=== PATIENT | female | born 1995 | race Two or more races ===

== ENCOUNTER → 2024-06-24 | Outpatient (CLI) | payer MEDICAID, SELFPAY ==
--- NOTE | 2024-06-24 10:30 | XR_ITS ---
Examination: MRI lumbar spine without contrast Date and time of exam: June 24, 2024 1013 hours INDICATIONS: Low back pain radiating to the buttock region numbness in the right leg 2 years worse the last 6 months Technique: Multiple MRI axial and sagittal sections lumbar spine. Sagittal T2-weighted images, TR 3500, TE 118 T1 weighted transverse sections, TR 688 T8.5, T2-weighted sagittal sections T1 weighted sagittal sections TR 621, TE 30 T2 axial sections, TR 4, 190, TE 84. 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
== END | disposition home or self-care (01) ==
LOC: SMRI 10:07
PROVIDERS: PCP Physician Assistant; Referring Provider Physician Assistant; Visit Provider Physician Assistant
DX: M51.379 Other intervertebral disc degeneration, lumbosacral region without mention of lumbar back pain or lower extremity pain (principal); M51.369 Other intervertebral disc degeneration, lumbar region without mention of lumbar back pain or lower extremity pain
CPT/HCPCS: 72148

== ENCOUNTER 2024-08-04 00:05 | Emergency (ER) | payer MEDICAID, SELFPAY ==
[2024-08-04 00:06] VITALS: BMI 33.0
[2024-08-04 00:40] VITALS: BP 119/77; PULSE 96; RESP 17; TEMP 36.8; O2SAT 98
--- NOTE | 2024-08-04 00:51 | XR_ITS ---
Examination: Complete OB ultrasound, less than 14 weeks, transabdominal Date and time of exam: August 04, 2024 0240 hrs. Indications: Pelvic cramping beginning 2 days ago, positive test today Technique: Obstetrical ultrasound images less than 14 weeks performed via transabdominal imaging Findings: A normal shaped single intrauterine gestation is present in the uterus. CRL 2.30 cm corresponds to 9 week 0 day gestational age Cardiac motion 182 BPM Ultrasonographic survey of visible and placental structures unremarkable. Amniotic fluid volume appears appropriate for this estimated gestational age. Right ovary 2.8 cm arterial flow Left ovary 4.5 cm arterial flow 21 mm cyst Impression: Viable intrauterine gestation 9 weeks 0 days.
--- NOTE | 2024-08-04 00:52 | PD.EDRME ---
Rapid Medical Screening Exam RME Arrival date/time: 08/04/24 00:05 29-year-old female 4 para 3 A0 presents emergency department complaining of abdominal cramping no vaginal bleeding reports this approximately 8 weeks . Chief Complaint: OB/Uterine Contractions Time Seen by Provider: 08/04/24 00:16 Vital signs: Vital Signs Temperature 98.2 F 08/04/24 00:40 Pulse Rate 96 08/04/24 00:40 Respiratory Rate 17 08/04/24 00:40 Blood Pressure 119/77 08/04/24 00:40 Pulse Oximetry (%) 98 08/04/24 00:40 Oxygen Delivery Method Room Air 08/04/24 00:40 Vital signs reviewed by provider: Yes
[2024-08-04 01:18] LABS: Collection Type, Urine Clean Catch; WBC,Urine 0 /hpf (0-5)
[2024-08-04 01:32] LABS: Bilirubin,Urine Negative (Negative); Blood,Urine Negative (Negative); Clarity,Urine Clear (Clear/Hazy); Color,Urine Colorless (Lt Yel-Yel); Culture Indicated,Urine Not Indicated; Glucose, Urine Negative (Negative); Ketones,Urine Negative (Negative); Leukocyte Esterase,Urine Negative (Negative); Nitrite,Urine Negative (Negative); Protein,Urine Negative (Neg - Trace); RBC,Urine < 1 /hpf (0-3); Specific Gravity,Urine 1.016 (1.001-1.035); Squamous Epithelial Cell,Urine 1 /hpf (0-5); Urobilinogen,Urine Negative mg/dL (0.0-1.0)
[2024-08-04 01:42] LABS: Basophils # (Auto) 0.1 Thou/mm3 (0.0-0.2); Basophils % (Auto) 1 % (0-2.5); Eosinophils # (Auto) 0.2 Thou/mm3 (0.0-0.5); Eosinophils % (Auto) 1 % (0-10); Hematocrit 40.2 % (36.0-46.0); Hemoglobin 13.6 g/dL (12.0-16.0); Immature Granulocytes % (Auto) 0 % (0-0); Immature Granulocytes Auto 0.04 Thou/mm3 (0.00-0.00); Lymphocytes # (Auto) 3.5 Thou/mm3 (1.0-4.8); Lymphocytes % (Auto) 30 % (10-50); Mean Corpuscular HGB Conc 33.8 g/dl (31.0-37.0); Mean Corpuscular Hemoglobin 29.3 pg (25.0-35.0); Mean Corpuscular Volume 87 fL (80-100); Monocytes # (Auto) 0.7 Thou/mm3 (0.0-0.8); Monocytes % (Auto) 6 % (0-12); Neutrophils # (Auto) 7.3 Thou/mm3 (1.8-7.7); Neutrophils % (Auto) 62 % (37-80); Nucleated Red Blood Cell % 0 /100 WBC (0); Platelet Count 265 Thou/mm3 (140-440); RDW Standard Deviation 39.7 fL (36.4-46.3); Red Blood Count 4.64 Miln/mm3 (4.00-5.20); White Blood Count 11.8 Thou/mm3 (3.6-11.0)
[2024-08-04 01:54] LABS: Alanine Aminotransferase 18 U/L (10-49); Albumin, Serum 4.5 gm/dL (3.5-5.0); Albumin/Globulin Ratio 1.5 (1.2-2.2); Alkaline Phosphatase 115 U/L (46-116); Anion Gap 6 (7-16); Aspartate Amino Transferase 18 U/L (0-34); BUN/Creatinine Ratio 22 Ratio (12-20); Bilirubin,Total 0.3 mg/dL (0.3-1.2); Blood Urea Nitrogen 13 mg/dL (9-23); Carbon Dioxide 26.4 mMol/L (20.0-31.0); Chloride 108 mMol/L (98-107); Creatinine (Component) 0.6 mg/dL (0.6-1.3); Estimated Creatinine Clearance 129.6 mL/min (>60); Glucose 96 mg/dL (74-106); Osmolality,Calculated 279 (275-295); Potassium 3.8 mMol/L (3.4-5.1); Sodium 140 mMol/L (136-145); Total Protein 7.5 gm/dL (5.7-8.2); eGFR > 60 See Note
[2024-08-04 02:26] LABS: Beta HCG,Quantitative 71227 mIU/mL (<5.0)
--- NOTE | 2024-08-04 04:11 | PRELIM_ITS ---
Obstetric ultrasound (transabdominal) with doppler and wave doppler spectral analysis. August 04, 2024 at 0240 hours Clinical history: Early viability Technique: Real-time ultrasound was performed using Duplex scanning including arterial inflow, venous outflow, color and spectral Doppler analysis of both ovaries. Comparison: None available at the time of this report. Findings: There is an intrauterine gestation with a single live fetus of mean gestational age 9 weeks and 0 days (CRL= 2.3 cm). cardiac activity is present at heart rate of 182 beats per minute. The uterus measures 12.7 x 6.3 x 8.1 cm. The right ovary measures 2.8 x 1.6 x 2.1 cm and is unremarkable. The left ovary measures 4.5 x 2.3 x 4.0 cm, mildly complex cystic lesion measuring 1.8 x 2.1 x 2.1 cm. Normal blood flow in the bilateral ovaries with normal wave Doppler spectral analysis There is no free fluid in the pelvis. Impression: 1. Intrauterine gestation with a single live fetus of mean gestational age 9 weeks and 0 days. 2. Mildly complex left ovarian cystic lesion, consider follow-up. 3. No evidence of ovarian torsion. Report Electronically Signed By: Heriberto Ferrell 08/04/2024 4:11:00 AM [EST]
--- NOTE | 2024-08-04 04:14 | PD.EDPREG ---
ED OB Contraction Preg RMI/HPI General Chief complaint: OB/Uterine Contractions Stated complaint: 8WKS PREG/ CRAMPING Time Seen by Provider: 08/04/24 00:16 Source: patient Arrival date/time: 08/04/24 00:05 29-year-old female 4 para 3 A0 presents emergency department complaining of abdominal cramping no vaginal bleeding reports this approximately 8 weeks . Patient [place] any fever, chills, vomiting, vaginal bleeding, dysuria, or any other associated symptom. Mode of arrival: ambulatory Limitations: no limitations RME / HPI RME / HPI Narrative: 08/04/24 00:05 29-year-old female 4 para 3 A0 presents emergency department complaining of abdominal cramping no vaginal bleeding reports this approximately 8 weeks . Related Data Home Medications ?Medication ?Instructions ?Recorded ?Confirmed vits no.124-ferrous fum 1 tab PO QDAY 04/15/22 04/16/22 27 mg iron-folic acid 800 mcg tablet ( Vitamin) Previous Rx's ?Medication ?Instructions ?Recorded benzocaine 20 %-menthol 0.5 % 1 spray topical TID #56 pumps 04/17/22 topical aerosol (Dermoplast (with menthol)) docusate sodium 100 mg capsule 100 mg PO BID #60 caps 04/17/22 (Colace) ibuprofen 800 mg tablet 800 mg PO Q6H PRN pain #120 tabs 04/17/22 lanolin 50 % topical ointment 1 applic topical TID PRN skin 04/17/22 irritation #15 tubes Allergies Allergy/AdvReac Type Severity Reaction Status Date / Time No Known Allergies Allergy Verified 09/17/22 09:46 Review of Systems Review of Systems Systems Reviewed: All systems reviewed, normal except as documented Constitutional Constitutional: Reports system reviewed and no additional complaints, except as documented, Denies body ache(s), Denies chills and Denies fever(s) Eyes Eyes: Reports system reviewed and no additional complaints, except as documented and Denies change in vision ENT Ears, Nose, Mouth, and Throat: Reports system reviewed and no additional complaints, except as documented, Denies disequilibrium, Denies dizziness, Denies sore throat and Denies vertigo Cardiovascular Cardiovascular: Reports system reviewed and no additional complaints, except as documented, Denies chest pain and Denies dyspnea Respiratory Respiratory: Reports system reviewed and no additional complaints, except as documented, Denies chest congestion, Denies cough and Denies dyspnea Gastrointestinal Gastrointestinal: Reports system reviewed and no additional complaints, except as documented, Reports abdominal pain, Denies nausea and Denies vomiting Musculoskeletal Musculoskeletal: Reports system reviewed and no additional complaints, except as documented, Denies abnormal gait and Denies arthralgias Integumentary/Breasts Skin/Breast: Reports system reviewed and no additional complaints, except as documented, Denies erythema, Denies rash and Denies wounds Neurologic Neurologic: Reports system reviewed and no additional complaints, except as documented, Denies abnormal gait, Denies disequilibrium, Denies dizziness and Denies vertigo Past Medical History Past Medical History NEUROLOGIC: Negative Neurological Disorders CARDIAC: Negative Cardiac Disorders or Congestive Heart Failure RESPIRATORY: Negative Chronic Obstructive Pulmonary Disease (COPD) GASTROINTESTINAL: Negative Gastrointestinal Disorders GENITOURINARY: Negative Genitourinary Disorders or Renal Disease REPRODUCTIVE: Negative Pelvic Inflammatory Disease MUSCULOSKELETAL: Negative Musculoskeletal Disorders or Carpal Tunnel Syndrome ENT: Negative Cataracts ENDOCRINE: Negative Endocrine Disorders, Diabetes Mellitus Type 1 or Diabetes Mellitus Type 2 HEMATOLOGIC: Negative Blood Disorders OTHER HISTORY: Negative Hospitalization, Autoimmune Disease, Down Syndrome, Developmental Delay, Falls or Organ Transplant Family History FAMILY HISTORY: Positive Family Cancer (pancreatic cancer for mother); Negative Family Psychiatric Problems, Family Respiratory Disorders, Family Cardiac Disorders, Family Gastrointestinal Problems, Family Surgery or Family Anesthesia Reaction Surgical History SURGICAL: Positive Ear Surgery, Tonsillectomy (2016) and Abdominal Surgery; Negative Cardiac Surgery, Endocrine Surgery, Tympanostomy Tube, Eye Surgery, Nose Surgery, Oral Surgery, Adenoidectomy, Cochlear Implant, Corneal Transplant, Throat Surgery, Tracheostomy, Gastric Bypass Surgery, Gastrostomy, Bowel Surgery, Nephrectomy, Transurethral Resection, Joint Replacement, Amputation, Open Reduction Internal Fixation, Arthroscopy, Neurologic Surgery, Brain Shunt, Mastectomy, Lumpectomy, Hysterectomy, Tubal Ligation, Section, Vasectomy or Organ Transplant Social History SMOKING STATUS: Never smoker ED Exam General Limitations: Present no limitations General appearance: Present alert and in no apparent distress Head Head exam: Present atraumatic Eye Eye exam: Present normal appearance, PERRL and EOMI ENT ENT exam: Present normal exam, normal oropharynx and mucous membranes moist Neck Neck exam: Present normal inspection, full ROM and trachea midline Chest Chest inspection: Present normal inspection and symmetric chest wall rise Respiratory Respiratory exam: Present normal lung sounds bilaterally Cardiovascular Cardiovascular exam: Present regular rate, normal rhythm and normal heart sounds Abdominal Exam Abdominal exam: Present soft and normal bowel sounds Extremities Exam Extremities exam: Present normal inspection and full ROM Back Exam Back exam: Present normal inspection and full ROM Neurological Exam Neurological exam: Present alert, oriented X3 and CN II-XII intact Psychiatric Psychiatric exam: Present normal affect and normal mood Skin Skin exam: Present warm, dry, intact and normal color Course Quality Measures none Orders Category Date Time Status US OB <= 14 weeks fetus Stat Exams 08/04/24 00:51 Taken ABO/RH Type Stat Lab 08/04/24 01:19 Completed Beta HCG,Quantitative Stat Lab 08/04/24 01:19 Completed CBC Stat Lab 08/04/24 01:19 Completed CMP [Comprehensive Metabolic Panel] Stat Lab 08/04/24 01:19 Completed Urinalysis, C/S if Indicated Stat Lab 08/04/24 01:01 Completed Vital Signs Vital signs: Vital Signs Temperature 98.2 F 08/04/24 00:40 Pulse Rate 96 08/04/24 00:40 Respiratory Rate 17 08/04/24 00:40 Blood Pressure 119/77 08/04/24 00:40 Pulse Oximetry (%) 98 08/04/24 00:40 Oxygen Delivery Method Room Air 08/04/24 00:40 98% room air within normal limits OB/Uterine Contractions MDM Narrative MDM Narrative:: 29-year-old female 4 para 3 A0 presents emergency department complaining of abdominal cramping no vaginal bleeding reports this approximately 8 weeks . Patient [place] any fever, chills, vomiting, vaginal bleeding, dysuria, or any other associated symptom. CBC mild leukocytosis 11.8. Hemoglobin 13.6. CMP was unremarkable for any elevated LFTs or gross electro abnormalities. Beta-hCG 71,227. O- blood but no vaginal bleeding or recent trauma will not give RhoGAM. Ultrasound findings: There is an intrauterine gestation with a single live fetus of mean gestational age 9 weeks and 0 days (CRL= 2.3 cm). cardiac activity is present at heart rate of 182 beats per minute. The uterus measures 12.7 x 6.3 x 8.1 cm. The right ovary measures 2.8 x 1.6 x 2.1 cm and is unremarkable. The left ovary measures 4.5 x 2.3 x 4.0 cm, mildly complex cystic lesion measuring 1.8 x 2.1 x 2.1 cm. Normal blood flow in the bilateral ovaries with normal wave Doppler spectral analysis There is no free fluid in the pelvis. Patient appears nontoxic and is hemodynamically stable. Patient instructed to follow-up with [facility] in 2 to 3 days for repeat ultrasound and follow-up of left ovarian cystic lesion. Instructed to return immediately to emergency department for any vaginal bleeding, worsening pain, or as needed. Patient data External records reviewed:: [facility] previous records Clinical information provided by:: patient Social determinants that could affect healthcare access:: none Patient has the following chronic illnesses:: None How is presenting disease/condition affected by chronic disease/condition?: no chronic disease Evaluation data The following diagnostics were reviewed and interpreted by me:: lab results and radiology exam(s) Lab and/or radiology exams considered but not ordered:: Ordered Interpretation Summary: Interpreted by me Medications / Prescriptions Medications or Prescriptions considered but not ordered:: N/A Medication administrations:: N/A Consultations Consultation(s) initiated? (list below): No Diagnosis OB Contractions Differential Diagnosis: other (Threatened , missed , ectopic ) Most likely diagnosis given after review of the tests above:: Ovarian cyst affecting in first trimester, antepartum Admission Indicated Admission indicated?: not indicated Explain why admission is indicated or not indicated:: Not indicated Admission Request Was there a request for admission?: No Disposition Plan Disposition Plan: Discharge Discharge Attestation Discharge Attestation: The patient and all family members were given an opportunity to ask questions and understood the discharge instructions. Discharge instructions specifically effects, indications for sooner follow up or return to the emergency department, and the expected course of current diagnosis. Patient condition: Stable Discharge Plan Plan Patient Disposition: HOME (Self Care) Disposition Comment: Stable Prescriptions/Referrals Prescriptions/Med Rec: No Action Vitamin 27 mg iron- 800 mcg Tablet 1 tab PO QDAY Dermoplast (with menthol) 20-0.5 % aerosol 1 spray topical TID Qty: 56 0RF docusate sodium [Colace] 100 mg capsule 100 mg PO BID Qty: 60 0RF ibuprofen 800 mg tablet 800 mg PO Q6H MDD 4 PRN (Reason: pain) Qty: 120 0RF lanolin 50 % ointment 1 applic topical TID PRN (Reason: skin irritation) Qty: 15 0RF Referrals: Clarisse Roberts PA-C [Primary Care Provider] - In 1 week Problem List Clinical Impression: Ovarian cyst affecting in first trimester, antepartum Patient/Caregiver Discharge Instructions Education Materials: First Trimester, Treatment for Ovarian Cysts, ED Ovarian Cyst Additional Instructions: Take Tylenol as needed for pain. Close follow-up with [facility] in 2 to 3 days for repeat ultrasound of left ovarian cyst. Return to emergency department for any vaginal bleeding, worsening pain, worsening symptoms, or as needed. Print Language: Portuguese Stand Alone Forms: [employer] Award Info., Patient Portal Info Letter PA/CHELA Supervising Physician PA/CHELA Supervising Physician: Dr. Chance
[2024-08-04 04:17] VITALS: BP 132/74; PULSE 86; RESP 16; TEMP 36.8; O2SAT 100
== END 2024-08-04 04:25 | disposition home or self-care (01) ==
PROVIDERS: Emergency Provider Emergency Medicine; PCP Physician Assistant
DX: O34.81 Maternal care for other abnormalities of pelvic organs, first trimester (principal); N83.202 Unspecified ovarian cyst, left side; Z3A.08 8 weeks gestation of pregnancy
CPT/HCPCS: 36415; 76801; 80053; 81001; 84702; 85025; 86900; 86901; 99284

== ENCOUNTER 2024-08-28 05:27 | Emergency (ER) | payer MEDICAID, SELFPAY ==
[2024-08-28 05:29] VITALS: BMI 34.3
[2024-08-28 05:36] VITALS: BP 137/71; PULSE 84; RESP 18; TEMP 37; O2SAT 99
--- NOTE | 2024-08-28 05:41 | XR_ITS ---
Examination: Complete OB ultrasound, less than 14 weeks, transabdominal Date and time of exam: 08/28/2024 0618 hrs. Indications: Vaginal bleeding beginning 2 days ago Technique: Obstetrical ultrasound images less than 14 weeks performed via transabdominal imaging Findings: Uterus 10.3 cm, pole 2.3 cm corresponding to 9 week 0 day gestational age However, no heart tones Right ovary 3.0 cm arterial flow Left ovary 3.3 cm arterial flow Impression: demise
--- NOTE | 2024-08-28 05:42 | PD.EDRME ---
Rapid Medical Screening Exam [facility] Arrival date/time: 08/28/24 05:27 29F at approximately 10 weeks and with no significant PMH presents to ED with 1 week of pelvic pain and vaginal bleeding. Patient had US several days ago where no FHTs were detected. Patient is aware she is likely having a miscarriage. She has not had Rhogam this and is O-. Patient denies dysuria/hematuria. Chief Complaint: Urogenital-Female Vital signs: Vital Signs Temperature 98.6 F 08/28/24 05:36 Pulse Rate 84 08/28/24 05:36 Respiratory Rate 18 08/28/24 05:36 Blood Pressure 137/71 H 08/28/24 05:36 Pulse Oximetry (%) 99 08/28/24 05:36 Oxygen Delivery Method Room Air 08/28/24 05:36
[2024-08-28 06:19] LABS: Basophils % (Auto) 1 % (0-2.5); Eosinophils # (Auto) 0.1 Thou/mm3 (0.0-0.5); Eosinophils % (Auto) 2 % (0-10); Hematocrit 40.5 % (36.0-46.0); Hemoglobin 13.6 g/dL (12.0-16.0); Immature Granulocytes % (Auto) 0 % (0-0); Immature Granulocytes Auto 0.02 Thou/mm3 (0.00-0.00); Lymphocytes # (Auto) 2.5 Thou/mm3 (1.0-4.8); Lymphocytes % (Auto) 31 % (10-50); Mean Corpuscular HGB Conc 33.6 g/dl (31.0-37.0); Mean Corpuscular Hemoglobin 29.6 pg (25.0-35.0); Mean Corpuscular Volume 88 fL (80-100); Monocytes # (Auto) 0.5 Thou/mm3 (0.0-0.8); Monocytes % (Auto) 6 % (0-12); Neutrophils % (Auto) 61 % (37-80); Nucleated Red Blood Cell % 0 /100 WBC (0); Platelet Count 243 Thou/mm3 (140-440); RDW Standard Deviation 40.9 fL (36.4-46.3); Red Blood Count 4.59 Miln/mm3 (4.00-5.20); White Blood Count 8.1 Thou/mm3 (3.6-11.0)
[2024-08-28 06:50] LABS: Alanine Aminotransferase 32 U/L (10-49); Albumin, Serum 4.6 gm/dL (3.5-5.0); Albumin/Globulin Ratio 1.6 (1.2-2.2); Alkaline Phosphatase 130 U/L (46-116); Anion Gap 8 (7-16); Aspartate Amino Transferase 30 U/L (0-34); BUN/Creatinine Ratio 11 Ratio (12-20); Beta HCG,Quantitative 854 mIU/mL (<5.0); Bilirubin,Total 0.3 mg/dL (0.3-1.2); Blood Urea Nitrogen 8 mg/dL (9-23); Carbon Dioxide 27.3 mMol/L (20.0-31.0); Chloride 102 mMol/L (98-107); Creatinine (Component) 0.7 mg/dL (0.6-1.3); Estimated Creatinine Clearance 108.9 mL/min (>60); Globulin 2.9 gm/dL (2.3-3.5); Glucose 104 mg/dL (74-106); Osmolality,Calculated 272 (275-295); Potassium 4.3 mMol/L (3.4-5.1); Sodium 137 mMol/L (136-145); Total Protein 7.5 gm/dL (5.7-8.2); eGFR > 60 See Note
--- NOTE | 2024-08-28 07:20 | EDNOTE_ITS ---
ED Female Urogenital RME/HPI General Chief complaint: Urogenital-Female Stated complaint: BLEEDING/ BACK PAIN 9WKS Time Seen by Provider: 08/28/24 07:39 Source: patient Arrival date/time: 08/28/24 05:27 Mode of arrival: ambulatory RME / HPI RME / HPI Narrative: Dr. Ferris? Main ED Evaluation: 29-year-old female, , at approximately 9 weeks gestation, with no significant past medical history, presenting to the ED with two days of vaginal bleeding. The patient previously had an ultrasound several days ago, and is aware it did not detect heart tones. She is aware that she is likely experiencing a miscarriage but presents today due to ongoing bleeding. She has not received Rhogam during this and is O-negative. Her last menstrual period was approximtely on June 08, 2024, and she had a positive test in June 2024. She denies dysuria, hematuria, abdominal pain, fevers, chills, dizziness, syncope, or excessive bleeding requiring pad changes more than every hour. The patient has no known drug allergies. She also denies any history of hypertension or diabetes. Related Data Home Medications ?Medication ?Instructions ?Recorded ?Confirmed vits no.[id number] fum 1 tab PO QDAY 2 04/16/22 27 mg iron-folic acid 800 mcg tablet ( Vitamin) Previous Rx's ?Medication ?Instructions ?Recorded benzocaine 20 %-menthol 0.5 % 1 spray topical TID #56 pumps 04/17/22 topical aerosol (Dermoplast (with menthol)) docusate sodium 100 mg capsule 100 mg PO BID #60 caps 04/17/22 (Colace) ibuprofen 800 mg tablet 800 mg PO Q6H PRN pain #120 tabs 04/17/22 lanolin 50 % topical ointment 1 applic topical TID PRN skin 04/17/22 irritation #15 tubes hydrocodone 5 mg-acetaminophen 300 1 tab PO Q8H PRN pa in #14 tabs 08/28/24 mg tablet misoprostol 200 mcg tablet 400 mcg (2 x 200 mcg) PO QI D #20 08/28/24 (Cytotec) tabs Allergies Allergy/AdvReac Type Severity Reaction Status Date / Time No Known Allergies Allergy Verified 09/17/22 09:46 Review of Systems Review of Systems Systems Reviewed: All systems reviewed, normal except as documented Past Medical History Past Medical History NEUROLOGIC: Negative Neurological Disorders CARDIAC: Negative Cardiac Disorders or Congestive Heart Failure RESPIRATORY: Negative Chronic Obstructive Pulmonary Disease (COPD) GASTROINTESTINAL: Negative Gastrointestinal Disorders GENITOURINARY: Negative Genitourinary Disorders or Renal Disease REPRODUCTIVE: Negative Pelvic Inflammatory Disease MUSCULOSKELETAL: Negative Musculoskeletal Disorders or Carpal Tunnel Syndrome ENT: Negative Cataracts ENDOCRINE: Negative Endocrine Disorders, Diabetes Mellitus Type 1 or Diabetes Mellitus Type 2 HEMATOLOGIC: Negative Blood Disorders OTHER HISTORY: Negative Hospitalization, Autoimmune Disease, Down Syndrome, Developmental Delay, Falls or Organ Transplant Family History FAMILY HISTORY: Positive Family Cancer (pancreatic cancer for mother); Negative Family Psychiatric Problems, Family Respiratory Disorders, Family Cardiac Disorders, Family Gastrointestinal Problems, Family Surgery or Family Anesthesia Reaction Surgical History SURGICAL: Positive Ear Surgery, Tonsillectomy (2016) and Abdominal Surgery; Negative Cardiac Surgery, Endocrine Surgery, Tympanostomy Tube, Eye Surgery, Nose Surgery, Oral Surgery, Adenoidectomy, Cochlear Implant, Corneal Transplant, Throat Surgery, Tracheostomy, Gastric Bypass Surgery, Gastrostomy, Bowel Surgery, Nephrectomy, Transurethral Resection, Joint Replacement, Amputation, Open Reduction Internal Fixation, Arthroscopy, Neurologic Surgery, Brain Shunt, Mastectomy, Lumpectomy, Hysterectomy, Tubal Ligation, Section, Vasectomy or Organ Transplant Social History SMOKING STATUS: Never smoker ED Exam Narrative Physical exam: GENERAL APPEARANCE: alert and oriented x 4, well-developed, well-nourished, no acute distress VITALS: All vitals were reviewed and the pulse ox is 99% on room air, which is normal according to my interpretation. HEENT: normocephalic, atraumatic NECK: supple LUNGS: no respiratory distress, normal effort HEART: good peripheral perfusion ABDOMEN: non distended EXTREMITIES: atraumatic NEUROLOGIC: awake; alert and oriented x4; cranial nerves II-XII grossly intact PSYCHIATRIC: appropriate mood and affect SKIN: warm, dry, normal color; no rashes Course Quality Measures none Orders Category Date Time Status Administer Rhogam NOW Care 08/28/24 05:40 Active Administer Rhogam NOW Care 08/28/24 07:49 Active US OB <= 14 weeks fetus Stat Exams 08/28/24 05:41 Completed Beta HCG,Quantitative Stat Lab 08/28/24 06:11 Completed CBC Stat Lab 08/28/24 06:11 Completed CMP [Comprehensive Metabolic Panel] Stat Lab 08/28/24 06:11 Completed RHOGAM [Rho(D) Immune Globulin] Stat Lab 08/28/24 06:11 Results Type and Screen Stat Lab 08/28/24 06:11 Results Vital Signs Vital signs: Vital Signs Temperature 98.6 F 08/28/24 05:36 Pulse Rate 84 08/28/24 05:36 Respiratory Rate 18 08/28/24 05:36 Blood Pressure 137/71 H 08/28/24 05:36 Pulse Oximetry (%) 99 08/28/24 05:36 Oxygen Delivery Method Room Air 08/28/24 05:36 Urogenital - Female MDM Narrative MDM Narrative:: 29-year-old female, , at approximately 9 weeks gestation, presenting to the ED with two days of vaginal bleeding. There are no current signs of hemodynamic instability, severe hemorrhage, or infection. The patient previously had an ultrasound several days ago, which did not detect heart tones. She is aware that she is likely experiencing a miscarriage but presents today due to ongoing vaginal bleeding and the need for further evaluation. She has not received Rhogam during this and is O-negative, necessitating Rh immunoglobulin administration prior to discharge. Ultrasound findings confirm an intrauterine gestational sac with a single fetus, measuring 9 weeks and 0 days, with no cardiac activity detected. These findings are consistent with demise. I thoroughly discussed the ultrasound findings and diagnosis with the patient in a language she understands. She verbalized that she was already aware of the miscarriage, which was diagnosed during a recent trip to [place] last week. All questions were addressed, and she demonstrated clear understanding of the diagnosis, treatment options, and post-discharge care. I will discharge her home with misoprostol, along with Tylenol with codeine for pain control. Additionally, Rhogam will be administered in the ED prior to discharge. Differential Diagnosis: -Vaginal bleeding in -Viable intrauterine (IUP) vs. miscarriage -Early loss (confirmed demise) Clinical Impression: -Vaginal bleeding -Rh negative status during - demise The patient is clinically stable and appropriate for outpatient management. She will be discharged with clear instructions on signs of complications, including excessive bleeding, fever, severe pain, or signs of infection, and advised to follow up with [facility] and/or PCP for further evaluation and monitoring. Scribe Attestation: I, Juanita Solo, am scribing for and in the presence of Dr. Ferris. Provider Notation: Although this document has been carefully reviewed, there may still be some phonetic and other typographical errors. These errors are purely grammatical due to imperfections in the software program and should not be construed in any way to compromise the substance of the patient's medical care during this visit. Patient data External records reviewed:: [facility] previous records Clinical information provided by:: patient Social determinants that could affect healthcare access:: none Patient has the following chronic illnesses:: None How is presenting disease/condition affected by chronic disease/condition?: no chronic disease Evaluation data The following diagnostics were reviewed and interpreted by me:: lab results and radiology exam(s) Lab and/or radiology exams considered but not ordered:: n/a Interpretation Summary: 0714 Received a phone call from radiology confirming that the patient's ultrasound indicates a gestational age of 9 weeks, 0 days, with no detectable cardiac activity. Obstetric ultrasound (transabdominal and transvaginal). August 28, 2024 0619 hours Clinical history: Pain/bleeding; 9 weeks; previous US shows no FHT Comparison: August 04, 2024 Findings: There is an intrauterine gestational sac with a single fetus of mean gestational age 9weeks and 0 day (CRL= 2.3 cm). No cardiac activity is present at this time. The yolk sac is demonstrated. The uterus measures 10.3x6.6x6.6cm. The right ovary measures 3x2x2.4cm and is unremarkable. The left ovary measures 3.3x2.2x1.7cm and is unremarkable. Both ovaries demonstrate color flow and spectral waveforms on Doppler evaluation. There is no free fluid in the pelvis. Impression: Intrauterine gestational sac with a single fetus of mean gestational age 9 weeks and 0 day. No cardiac activity identified at this time. This may be related tomissed miscarriage (early loss). Discussion Details: Results verbally communicated to : Dr. Ferris at 07:14 AM 08/28/2024 Report Electronically Signed By: Yariel Martin 08/28/2024 7:18:33 AM [EST] Medications / Prescriptions Medications or Prescriptions considered but not ordered:: n/a Medication administrations:: as above, if any Consultations Consultation(s) initiated? (list below): No Diagnosis Urogenital Female Differential Diagnosis: other (See narrative) Most likely diagnosis given after review of the tests above:: See narrative Admission Indicated Admission indicated?: not indicated Admission Request Was there a request for admission?: No Disposition Plan Disposition Plan: Discharge Discharge Attestation Discharge Attestation: The patient and all family members were given an opportunity to ask questions and understood the discharge instructions. Discharge instructions specifically effects, indications for sooner follow up or return to the emergency department, and the expected course of current diagnosis. Patient condition: Stable Discharge Plan Plan Patient Disposition: HOME (Self Care) Disposition Comment: Follow-up with your primary care doctor in 2 days. Patient condition on transfer: Stable Prescriptions/Referrals Prescriptions/Med Rec: New misoprostol [Cytotec] 200 mcg tablet 400 mcg PO QID Qty: 20 0RF hydrocodone-acetaminophen 5-300 mg tablet 1 tab PO Q8H MDD 4 PRN (Reason: pain) Qty: 14 0RF No Action Vitamin 27 mg iron- 800 mcg Tablet 1 tab PO QDAY Dermoplast (with menthol) 20-0.5 % aerosol 1 spray topical TID Qty: 56 0RF docusate sodium [Colace] 100 mg capsule 100 mg PO BID Qty: 60 0RF ibuprofen 800 mg tablet 800 mg PO Q6H MDD 4 PRN (Reason: pain) Qty: 120 0RF lanolin 50 % ointment 1 applic topical TID PRN (Reason: skin irritation) Qty: 15 0RF Referrals: Clarisse Roberts PA-C [Primary Care Provider] - In 1 week Problem List Clinical Impression: Vaginal bleeding, Rh negative status during , demise Patient/Caregiver Discharge Instructions Other Activity Instructions:: Off work 1 week from 08/28/2024 to 09/04/2024 Education Materials: If You Are Rh Negative, ED Dysfunctional Uterine Bleeding, ED MISCARRIAGE Completed Additional Instructions: Take medications as prescribed. They include misoprostol and Tylenol with codeine. Print Language: Yakut Stand Alone Forms: [employer] Award Info., Patient Portal Info Letter
[2024-08-28 11:14] VITALS: BP 112/73; PULSE 95; RESP 16; TEMP 36.9; O2SAT 98
[2024-08-28 11:22] VITALS: BP 112/73; PULSE 95; RESP 16; TEMP 36.9; O2SAT 98
[2024-08-28 11:38] VITALS: BP 115/65; PULSE 92; RESP 18; TEMP 36.9; O2SAT 99
== END 2024-08-28 12:02 | disposition home or self-care (01) ==
PROVIDERS: Physician Assistant; Emergency Provider Family Medicine; PCP Physician Assistant
DX: O02.1 Missed abortion (principal)
CPT/HCPCS: 36415; 76801; 80053; 84702; 85025; 86850; 86900; 86901; 99284; J2790

== ENCOUNTER 2024-08-28 22:50 | Emergency (ER) | payer MEDICAID, SELFPAY ==
[2024-08-28 22:51] VITALS: BMI 35.2
[2024-08-28 23:43] VITALS: BP 106/72; PULSE 88; RESP 18; TEMP 36.8; O2SAT 98
[2024-08-29] MEDS: KETOROLAC INJ 60 MG/2 ML VIAL IM (00:02)
--- NOTE | 2024-08-29 01:30 | EDNOTE_ITS ---
ED Female Urogenital RME/HPI General Chief complaint: Abdominal Pain Stated complaint: Spontaneous , cytotec given but no pain me Time Seen by Provider: 08/28/24 23:53 Arrival date/time: 08/28/24 22:50 29F with no significant PMH presents to ED with pelvic pain. Patient was discharged yesterday with diagnosis of demise. Patient got her Rhogam due to being Rh neg. Patient was sent misoprostol, but no pain meds. She is here for pain meds. Limitations: no limitations Related Data Home Medications ?Medication ?Instructions ?Recorded ?Confirmed vits no.[id number]-ferrous fum 1 tab PO QDAY 2 04/16/22 27 mg iron-folic acid 800 mcg tablet ( Vitamin) Previous Rx's ?Medication ?Instructions ?Recorded benzocaine 20 %-menthol 0.5 % 1 spray topical TID #56 pumps 04/17/22 topical aerosol (Dermoplast (with menthol)) docusate sodium 100 mg capsule 100 mg PO BID #60 caps 04/17/22 (Colace) ibuprofen 800 mg tablet 800 mg PO Q6H PRN pain #120 tabs 04/17/22 lanolin 50 % topical ointment 1 applic topical TID PRN skin 04/17/22 irritation #15 tubes hydrocodone 5 mg-acetaminophen 300 1 tab PO Q8H PRN pa in #14 tabs 08/28/24 mg tablet hydrocodone 5 mg-acetaminophen 325 1 tab PO BID PRN pa in #10 tabs 08/28/24 mg tablet misoprostol 200 mcg tablet 400 mcg (2 x 200 mcg) PO QI D #20 08/28/24 (Cytotec) tabs Allergies Allergy/AdvReac Type Severity Reaction Status Date / Time No Known Allergies Allergy Verified 09/17/22 09:46 Review of Systems Review of Systems Systems Reviewed: All systems reviewed, normal except as documented Constitutional Constitutional: Reports system reviewed and no additional complaints, except as documented, Denies fever(s) and Denies headache(s) ENT Ears, Nose, Mouth, and Throat: Denies disequilibrium and Denies headache(s) Cardiovascular Cardiovascular: Reports system reviewed and no additional complaints, except as documented, Denies chest pain and Denies dyspnea Respiratory Respiratory: Reports system reviewed and no additional complaints, except as doc umented, Denies cough and Denies dyspnea Gastrointestinal Gastrointestinal: Reports system reviewed and no additional complaints, except as documented, Denies abdominal pain, Denies nausea and Denies vomiting Genitourinary Genitourinary: Reports as per HPI, Reports abnormal vaginal bleeding and Reports pelvic pain Neurologic Neurologic: Reports system reviewed and no additional complaints, except as documented, Denies confusion, Denies disequilibrium and Denies headache(s) Psychiatric Psychiatric: Denies confusion Past Medical History Past Medical History NEUROLOGIC: Negative Neurological Disorders CARDIAC: Negative Cardiac Disorders or Congestive Heart Failure RESPIRATORY: Negative Chronic Obstructive Pulmonary Disease (COPD) GASTROINTESTINAL: Negative Gastrointestinal Disorders GENITOURINARY: Negative Genitourinary Disorders or Renal Disease REPRODUCTIVE: Negative Pelvic Inflammatory Disease MUSCULOSKELETAL: Negative Musculoskeletal Disorders or Carpal Tunnel Syndrome ENT: Negative Cataracts ENDOCRINE: Negative Endocrine Disorders, Diabetes Mellitus Type 1 or Diabetes Mellitus Type 2 HEMATOLOGIC: Negative Blood Disorders OTHER HISTORY: Negative Hospitalization, Autoimmune Disease, Down Syndrome, Developmental Delay, Falls or Organ Transplant Family History FAMILY HISTORY: Positive Family Cancer; Negative Family Psychiatric Problems, Family Respiratory Disorders, Family Cardiac Disorders, Family Gastrointestinal Problems, Family Surgery or Family Anesthesia Reaction Surgical History SURGICAL: Positive Ear Surgery, Tonsillectomy and Abdominal Surgery; Negative Cardiac Surgery, Endocrine Surgery, Tympanostomy Tube, Eye Surgery, Nose Surgery, Oral Surgery, Adenoidectomy, Cochlear Implant, Corneal Transplant, Throat Surgery, Tracheostomy, Gastric Bypass Surgery, Gastrostomy, Bowel Surgery, Nephrectomy, Transurethral Resection, Joint Replacement, Amputation, Open Reduction Internal Fixation, Arthroscopy, Neurologic Surgery, Brain Shunt, Mastectomy, Lumpectomy, Hysterectomy, Tubal Ligation, Section, Vasectomy or Organ Transplant Social History SMOKING STATUS: Never smoker ED Exam General Limitations: Present no limitations General appearance: Present alert and in no apparent distress Head Head exam: Present atraumatic Eye Eye exam: Present normal appearance, PERRL and EOMI ENT ENT exam: Present normal exam, normal oropharynx and mucous membranes moist Neck Neck exam: Present normal inspection, full ROM and trachea midline Chest Chest inspection: Present normal inspection and symmetric chest wall rise Respiratory Respiratory exam: Present normal lung sounds bilaterally Cardiovascular Cardiovascular exam: Present regular rate, normal rhythm and normal heart sounds Abdominal Exam Abdominal exam: Present soft and normal bowel sounds Extremities Exam Extremities exam: Present normal inspection and full ROM Back Exam Back exam: Present normal inspection and full ROM Neurological Exam Neurological exam: Present alert, oriented X3 and CN II-XII intact Psychiatric Psychiatric exam: Present normal affect and normal mood Skin Skin exam: Present warm, dry, intact and normal color Course Quality Measures none Orders Category Date Time Status Ketorolac Inj [Toradol Inj] Med 08/28/24 23:53 Discontinued 60 mg IM X1 ONE Vital Signs Vital signs: Vital Signs Temperature 98.2 F 08/28/24 23:43 Pulse Rate 88 08/28/24 23:43 Respiratory Rate 18 08/28/24 23:43 Blood Pressure 106/72 08/28/24 23:43 Pulse Oximetry (%) 98 08/28/24 23:43 Oxygen Delivery Method Room Air 08/28/24 23:43 O2 at 98% on RA and WNLs Urogenital - Female MDM Narrative MDM Narrative:: 29F with no significant PMH presents to ED with pelvic pain. Patient was discharged yesterday with diagnosis of demise. Patient got her Rhogam due to being Rh neg. Patient was sent misoprostol, but no pain meds. She is here for pain meds. Physical exam reveals no pelvic tenderness. Patient is afebrile, calm, and alert. Meds given. Patient data External records reviewed:: [facility] previous records Clinical information provided by:: patient Social determinants that could affect healthcare access:: none Patient has the following chronic illnesses:: none How is presenting disease/condition affected by chronic disease/condition?: no chronic disease Evaluation data The following diagnostics were reviewed and interpreted by me:: other (specify) (none) Lab and/or radiology exams considered but not ordered:: not ordered Interpretation Summary: n/a Medications / Prescriptions Medications or Prescriptions considered but not ordered:: ordered Medication administrations:: Medication Administration History Discontinued Medications Ketorolac Tromethamine (Ketorolac Inj 60 Mg/2 Ml Vial) 60 mg IM X1 ONE Stop: 08/28/24 23:54 Last Admin: 08/29/24 00:02 Dose: 60 mg Documented By: KF above Consultations Consultation(s) initiated? (list below): No Diagnosis Urogenital Female Differential Diagnosis: urinary tract infection, bacterial vaginosis, trichomoniasis, cervicitis, ovarian cyst, vaginitis, ruptured ovarian cyst, cyst of Bartholin's gland, cystitis, dysmenorrhea and other ( demise) Most likely diagnosis given after review of the tests above:: demise Admission Indicated Admission indicated?: not indicated Admission Request Was there a request for admission?: No Disposition Plan Disposition Plan: Discharge Discharge Attestation Discharge Attestation: The patient and all family members were given an opportunity to ask questions and understood the discharge instructions. Discharge instructions specifically effects, indications for sooner follow up or return to the emergency department, and the expected course of current diagnosis. Patient condition: Stable Discharge Plan Plan Patient Disposition: HOME (Self Care) Disposition Comment: Stable Prescriptions/Referrals Prescriptions/Med Rec: New hydrocodone-acetaminophen 5-325 mg tablet 1 tab PO BID MDD 2 PRN (Reason: pain) Qty: 10 0RF No Action Vitamin 27 mg iron- 800 mcg Tablet 1 tab PO QDAY Dermoplast (with menthol) 20-0.5 % aerosol 1 spray topical TID Qty: 56 0RF docusate sodium [Colace] 100 mg capsule 100 mg PO BID Qty: 60 0RF ibuprofen 800 mg tablet 800 mg PO Q6H MDD 4 PRN (Reason: pain) Qty: 120 0RF lanolin 50 % ointment 1 applic topical TID PRN (Reason: skin irritation) Qty: 15 0RF misoprostol [Cytotec] 200 mcg tablet 400 mcg PO QID Qty: 20 0RF hydrocodone-acetaminophen 5-300 mg tablet 1 tab PO Q8H MDD 4 PRN (Reason: pain) Qty: 14 0RF Problem List Clinical Impression: demise Patient/Caregiver Discharge Instructions Additional Instructions: Please follow-up with PCP within 24-48 hours and return immediately if symptoms worsen. Print Language: Bolivian Stand Alone Forms: Patient Portal Info Letter PADMINI/[employer] ARCHIT[employer] Supervising Physician MICKEY Supervising Physician: Dr. Daley
== END 2024-08-30 09:27 | disposition home or self-care (01) ==
PROVIDERS: Emergency Provider Emergency Medicine; PCP Physician Assistant
DX: O03.9 Complete or unspecified spontaneous abortion without complication (principal)
CPT/HCPCS: 96372; 99283; J1885

== ENCOUNTER 2024-08-29 05:29 | Emergency (ER) | payer MEDICAID, SELFPAY ==
[2024-08-29 05:32] VITALS: BMI 28.8
[2024-08-29 05:34] VITALS: BP 109/75; PULSE 113; RESP 20; TEMP 36.6; O2SAT 100
--- NOTE | 2024-08-29 05:42 | PD.EDRME ---
Rapid Medical Screening Exam RME Arrival date/time: 08/29/24 05:29 29F with no significant PMH presents to ED with active miscarriage. Patient was here earlier today for pain meds after being told she had a demise from previous visit. They didn't send her any meds, but send misoprostal. Now she is bleeding heavier, but her pain is better. Chief Complaint: Vaginal Bleeding Time Seen by Provider: 08/29/24 06:27 Vital signs: Vital Signs Temperature 97.8 F 08/29/24 05:34 Pulse Rate 113 H 08/29/24 05:34 Respiratory Rate 20 08/29/24 05:34 Blood Pressure 109/75 08/29/24 05:34 Pulse Oximetry (%) 100 08/29/24 05:34 Oxygen Delivery Method Room Air 08/29/24 05:34
[2024-08-29] MEDS: SODIUM CHLORIDE 0.9% 1000 ML 1,000 ML 999 ML IV ×2 (06:05→08:44)
--- NOTE | 2024-08-29 06:07 | PD.EDVAGBL ---
ED OB Contraction Preg RMI/HPI General Chief complaint: Vaginal Bleeding Stated complaint: vag bleeding sp demise/medication AB Time Seen by Provider: 08/29/24 06:27 Arrival date/time: 08/29/24 05:29 RME / HPI RME / HPI Narrative: 08/29/24 05:29 29F with no significant PMH presents to ED with active miscarriage. Patient was here earlier today for pain meds after being told she had a demise from previous visit. They didn't send her any meds, but send misoprostal. Now she is bleeding heavier, but her pain is better. DR. LAWRENCE MAIN ED EVALUATION: 29 year old female presents with complaints of vaginal bleeding for 12 hours. She states that she had a demise at approximately 9 weeks and they were waiting for her to miscarry and she did not. She saw [facility] a few days ago. Currently the patient had a medical and took the pills yesterday. Today she feels dizzy. Last menstrual period on 10 of March. Bleeding at 3 pads every four hours without clots. Min low abdominal cramping that is improved since she brought to the emergency department. No history of ectopics. The patient got dizzy today and that is why she came to the emergency department. The patient denies shortness of breath, chest pain, fever, chills, diarrhea, constipation, dysuria, back pain, or syncope no prior history of pelvic inflammatory disease, pelvic surgeries, use of fertility agents, and no current intrauterine device. Patient states that she was seen at the [facility] by Dr Tilley. As she recalls the name was. Related Data Home Medications ?Medication ?Instructions ?Recorded ?Confirmed vits no.[id number]-ferrous fum 1 tab PO QDAY 04/15/22 04/16/22 27 mg iron-folic acid 800 mcg tablet ( Vitamin) Previous Rx's ?Medication ?Instructions ?Recorded benzocaine 20 %-menthol 0.5 % 1 spray topical TID #56 pumps 04/17/22 topical aerosol (Dermoplast (with menthol)) docusate sodium 100 mg capsule 100 mg PO BID #60 caps 04/17/22 (Colace) ibuprofen 800 mg tablet 800 mg PO Q6H PRN pain #120 tabs 04/17/22 lanolin 50 % topical ointment 1 applic topical TID PRN skin 04/17/22 irritation #15 tubes hydrocodone 5 mg-acetaminophen 300 1 tab PO Q8H PRN pain #14 tabs /15/25 mg tablet hydrocodone 5 mg-acetaminophen 325 1 tab PO BID PRN pain #10 tabs /15/25 mg tablet misoprostol 200 mcg tablet 400 mcg (2 x 200 mcg) PO QID #20 08/28/24 (Cytotec) tabs Allergies Allergy/AdvReac Type Severity Reaction Status Date / Time No Known Allergies Allergy Verified 08/29/24 05:32 Review of Systems Review of Systems Systems Reviewed: All systems reviewed, normal except as documented Narrative Review of Systems: GEN: No fever, no chills, no weight loss EYES: No discharge, no visual changes, no pain HEENT: No ear pain, no congestion, no sore throat PULM: No shortness of breath, no cough, no congestion CV: No chest pain, no dyspnea on exertion, no palpitations GI: No nausea, no vomiting, no diarrhea, no pain, no constipation : No frequency, no urgency and no dysuria + vaginal bleeding MUSC/SKEL: No joint pain, no back pain SKIN: No rash PSYCH: No hallucinations, no depression HEME/LYMPH: No easy bleeding or bruising tendencies NEURO: No weakness, no headache, + dizziness Past Medical History Family History FAMILY HISTORY: Positive Family Cancer Surgical History SURGICAL: Positive Ear Surgery, Tonsillectomy and Abdominal Surgery Social History SMOKING STATUS: Never smoker SUBSTANCE USE: does not use ALCOHOL: Never ED Exam Narrative Physical exam: General: Non-toxic, well appearing, in no acute distress, and appears state age and well developed and well nourished. Vital signs: Tachycardia head: Normocephalic and atraumatic. Eyes: Aproptotic, extraocular movements intact, and pupils equally round and reactive to light. Nose: Nares without evidence of rhinorrhea. Neck: Supple without menigismus without lympadenopathy. Heart: Regular rate and rhythm without murmur, gallops, or rubs. Lungs: Clear to auscultation without wheezing, rales, or rhonchi. Abdomen: Soft, nontender, no masses, and not distended. Pelvic: Normal labia majora and minora. Os closed without active bleeding. Minimal blood in vault without discharge, foreign bodies, vaginal lacerations, or lesions. No cervical motion tenderness. No adenexal masses or tenderness. Back: No costovertebral angle tenderness. Neurological: Alert and oriented to person, place, and time. Gait normal. Extremities: no cyanosis or edema. Skin: no rashes, ecchymosis, or lesions. Course Quality Measures none Orders Category Date Time Status Insert IV NOW Care 08/29/24 05:41 Completed Pelvic Exam X1 Care 08/29/24 08:14 Completed US pelvic complete Stat Exams 08/29/24 06:55 Completed BMP [Basic Metabolic Panel] Stat Lab 08/29/24 06:51 Completed Beta HCG,Quantitative Stat Lab 08/29/24 06:51 Completed CBC Stat Lab 08/29/24 06:51 Completed Rh Testing Only Stat Lab 08/29/24 06:51 Results Rho(D) Immune Globulin Stat Lab 08/29/24 06:51 Results Urinalysis Stat Lab 08/29/24 09:55 Ordered Sodium Chloride 0.9% 1000 ml [Ns] 1,000 ml Med 08/29/24 05:41 Discontinued IV 999 mls/hr Sodium Chloride 0.9% 1000 ml [Ns] 1,000 ml Med 08/29/24 08:30 Discontinued IV 999 mls/hr Reevaluation(s) Reevaluation #1: Patient remains clinically stable throughout the emergency department visit. Re-assessment at the time of disposition demonstrates that the patient is in no acute distress. We reviewed all the results, analysis, and treatment plans. Patient is amenable to discharge. Strict return precautions were outlined. Patient was discharged in stable condition. Time: 13:45 Vital Signs Vital signs: Vital Signs Temperature 97.8 F 08/29/24 05:34 Pulse Rate 113 H 08/29/24 05:34 Respiratory Rate 20 08/29/24 05:34 Blood Pressure 109/75 08/29/24 05:34 Pulse Oximetry (%) 100 08/29/24 05:34 Oxygen Delivery Method Room Air 08/29/24 05:34 Vaginal Bleeding MDM Narrative MDM Narrative: 29-year-old female who presents today after taking pills for medical 24 hours ago. Differential diagnosis includes hemorrhage, ectopic , retained products.. Doubt heterotopic . . Plan to follow up in obstetrics clinic within the week. Vital signs remained stable throughout the emergency department course. The patient was given strict return precautions and was comfortable with the plan. Return to the ER for worsening abdominal pain, fever, worsening vaginal bleeding, or other concerns. Recommend pelvic rest (no sexual activity, douching, or tampon use) for two days. Follow up with your tie puller within the next 72 hours for reexamination. Follow up in your primary care physician?s office within the next 2 to 4 days for reevaluation. Patient data External records reviewed:: [facility] previous records (Reviewed last ED visit dated 08/28/24, discharged with the following: demise) Clinical information provided by:: patient Social determinants that could affect healthcare access:: none Patient has the following chronic illnesses:: Denies any PMHx, surgeries, daily medications, or known allergies. Patient states that she was seen at the [facility] by Dr Tilley. How is presenting disease/condition affected by chronic disease/condition?: no chronic disease Evaluation data The following diagnostics were reviewed and interpreted by me:: lab results and radiology exam(s) Lab and/or radiology exams considered but not ordered:: none Interpretation Summary: Procedure(s): US pelvic complete Accession Number(s): [id number] cc: Darrell Garg MD; NO PRIMARY/FAMILY,PHYSICIAN; Iris Lawrence MD~ Examination: Pelvic ultrasound, transabdominal, complete Technique: Transabdominal ultrasound of the pelvis performed using grayscale imaging Date and time of exam: August 29, 2024, 0903 hrs. Indications: Pelvic pain this week Findings: Uterus 12.1 cm endometrial stripe 1.42 cm No uterine mass or intrauterine gestation Right ovary obscured by bowel gas Left ovary 3.0 cm arterial flow Impression: No uterine mass or intrauterine gestation Dictated By: Darrell Garg MD Medications / Prescriptions Medications or Prescriptions considered but not ordered:: none Medication administrations:: Medication Administration History Discontinued Medications Sodium Chloride (Ns) 1,000 mls @ 999 mls/hr IV .Q1H1M ONE Stop: 08/29/24 06:41 Last Infusion: 08/29/24 07:06 Dose: Infused Documented By: Admin: 08/29/24 06:05 Dose: 999 mls/hr Documented By: EF Sodium Chloride (Ns) 1,000 mls @ 999 mls/hr IV .Q1H1M ONE Stop: 08/29/24 09:30 Last Infusion: 08/29/24 09:45 Dose: Infused Documented By: Admin: 08/29/24 08:44 Dose: 999 mls/hr Documented By: ELLIE see above Consultations Consultation(s) initiated? (list below): No Diagnosis Vaginal Bleeding Differential Diagnosis: missed , threatened , dysfunctional uterine bleeding, menometrorrhagia, ectopic without intrauterine and vaginal bleeding Most likely diagnosis given after review of the tests above:: Complete miscarriage Vaginal bleeding Admission Indicated Admission indicated?: not indicated Admission Request Was there a request for admission?: No Disposition Plan Disposition Plan: Discharge Discharge Attestation Discharge Attestation: The patient and all family members were given an opportunity to ask questions and understood the discharge instructions. Discharge instructions specifically effects, indications for sooner follow up or return to the emergency department, and the expected course of current diagnosis. Patient condition: Stable Discharge Plan Plan Patient Disposition: HOME (Self Care) Patient condition on transfer: Stable Prescriptions/Referrals Prescriptions/Med Rec: No Action Vitamin 27 mg iron- 800 mcg Tablet 1 tab PO QDAY Dermoplast (with menthol) 20-0.5 % aerosol 1 spray topical TID Qty: 56 0RF docusate sodium [Colace] 100 mg capsule 100 mg PO BID Qty: 60 0RF ibuprofen 800 mg tablet 800 mg PO Q6H MDD 4 PRN (Reason: pain) Qty: 120 0RF lanolin 50 % ointment 1 applic topical TID PRN (Reason: skin irritation) Qty: 15 0RF misoprostol [Cytotec] 200 mcg tablet 400 mcg PO QID Qty: 20 0RF hydrocodone-acetaminophen 5-300 mg tablet 1 tab PO Q8H MDD 4 PRN (Reason: pain) Qty: 14 0RF hydrocodone-acetaminophen 5-325 mg tablet 1 tab PO BID MDD 2 PRN (Reason: pain) Qty: 10 0RF Referrals: Conner Tilley MD [Physician] - 08/30/24 (As scheduled.) No Primary/Family,Physician [Primary Care Provider] - In 1 week Problem List Clinical Impression: Complete miscarriage, Vaginal bleeding Patient/Caregiver Discharge Instructions Education Materials: ED Dysfunctional Uterine Bleeding, ED MISCARRIAGE Completed Additional Instructions: Ultrasound shows complete and no retained products. Please follow-up with Dr Tilley tomorrow as scheduled. You already got your RhoGAM prior to your visit to the emergency department. Return to the emergency department for worsening symptoms, you are dizzy, you are passing clots, or any other concerns. Print Language: [place] Stand Alone Forms: [employer] Award Info., Patient Portal Info Letter
--- NOTE | 2024-08-29 06:55 | XR_ITS ---
Examination: Pelvic ultrasound, transabdominal, complete Technique: Transabdominal ultrasound of the pelvis performed using grayscale imaging Date and time of exam: August 29, 2024, 0903 hrs. Indications: Pelvic pain this week Findings: Uterus 12.1 cm endometrial stripe 1.42 cm No uterine mass or intrauterine gestation Right ovary obscured by bowel gas Left ovary 3.0 cm arterial flow Impression: No uterine mass or intrauterine gestation
[2024-08-29 07:06] LABS: Basophils # (Auto) 0.1 Thou/mm3 (0.0-0.2); Basophils % (Auto) 1 % (0-2.5); Eosinophils # (Auto) 0.1 Thou/mm3 (0.0-0.5); Eosinophils % (Auto) 1 % (0-10); Hematocrit 34.8 % (36.0-46.0); Hemoglobin 11.7 g/dL (12.0-16.0); Immature Granulocytes % (Auto) 0 % (0-0); Immature Granulocytes Auto 0.02 Thou/mm3 (0.00-0.00); Lymphocytes % (Auto) 18 % (10-50); Mean Corpuscular HGB Conc 33.6 g/dl (31.0-37.0); Mean Corpuscular Hemoglobin 29.8 pg (25.0-35.0); Mean Corpuscular Volume 89 fL (80-100); Monocytes # (Auto) 0.5 Thou/mm3 (0.0-0.8); Monocytes % (Auto) 5 % (0-12); Neutrophils # (Auto) 8.3 Thou/mm3 (1.8-7.7); Neutrophils % (Auto) 76 % (37-80); Nucleated Red Blood Cell % 0 /100 WBC (0); Platelet Count 247 Thou/mm3 (140-440); RDW Standard Deviation 40.3 fL (36.4-46.3); Red Blood Count 3.92 Miln/mm3 (4.00-5.20)
[2024-08-29 07:37] LABS: Anion Gap 10 (7-16); BUN/Creatinine Ratio 16 Ratio (12-20); Beta HCG,Quantitative 440 mIU/mL (<5.0); Blood Urea Nitrogen 11 mg/dL (9-23); Calcium 9.3 mg/dL (8.3-10.6); Carbon Dioxide 22.5 mMol/L (20.0-31.0); Chloride 103 mMol/L (98-107); Creatinine (Component) 0.7 mg/dL (0.6-1.3); Estimated Creatinine Clearance 120.6 mL/min (>60); Glucose 147 mg/dL (74-106); Osmolality,Calculated 272 (275-295); Potassium 3.7 mMol/L (3.4-5.1); Sodium 135 mMol/L (136-145); eGFR > 60 See Note
[2024-08-29 08:13] VITALS: BP 95/41; PULSE 98; RESP 17; TEMP 36.6; O2SAT 98
--- NOTE | 2024-08-29 08:45 | PC.NURSE ---
ASSUMED CARE AROUND 0710. WITH INITIAL ASSESSMENT PT DENIES ANY PAIN OR DISCOMFORT, STATES SHE IS STILL BLEEDING. US CALLED TO HYDRATE PT, WATER WAS GIVEN TO PT AND INSTRUCTED TO LET THIS RN KNOW WHEN BLADDER IS FULL.
--- NOTE | 2024-08-29 09:01 | PC.NURSE ---
CALLED US AT THIS TIME TO INFORM THEM PT IS READY AND HAS FULL BLADDER
--- NOTE | 2024-08-29 09:15 | PC.NURSE ---
PT TO US AT THIS TIME
[2024-08-29 11:49] VITALS: BP 101/63; PULSE 98; RESP 16; TEMP 36.9; O2SAT 97
== END 2024-08-29 14:54 | disposition home or self-care (01) ==
PROVIDERS: Emergency Provider Emergency Medicine
DX: O03.9 Complete or unspecified spontaneous abortion without complication (principal); R42 Dizziness and giddiness
CPT/HCPCS: 36415; 76856; 80048; 81001; 84702; 85025; 86901; 96360; 96361; 99284; J7030

== ENCOUNTER 2024-09-07 08:01 | Day surgery (SDC) | payer MEDICAID, SELFPAY ==
[2024-09-07] VITALS (15 sets, daily range): BP systolic 93–122; BP diastolic 44–73; PULSE 80–133; RESP 14–20; TEMP 36.2–38.6; O2SAT 98–100; BMI 33.6
--- NOTE | 2024-09-07 08:13 | PD.EDRME ---
Rapid Medical Screening Exam RME Arrival date/time: 09/07/24 08:01 29-year-old female presents to the emergency department today stating that she is having generalized bodyaches, pain, chills. Patient reports that she had recent miscarriage Chief Complaint: General Adult/Misc Complain Vital signs: Vital Signs Temperature 99.0 F 09/07/24 08:09 Pulse Rate 118 H 09/07/24 08:09 Respiratory Rate 20 09/07/24 08:09 Blood Pressure 96/48 L 09/07/24 08:09 Pulse Oximetry (%) 100 09/07/24 08:09 Oxygen Delivery Method Room Air 09/07/24 08:09
--- NOTE | 2024-09-07 08:14 | XR_ITS ---
Examination: Pelvic ultrasound, transabdominal, complete Technique: Transabdominal ultrasound of the pelvis performed using grayscale imaging Date and time of exam: September 07, 2024 0914 hours INDICATIONS: Vaginal bleeding 1 week, post medical FINDINGS: Uterus 8.5 cm with vascular thickened endometrium 2.9 cm Right ovary 3.4 cm arterial flow 16mm follicular cyst Left ovary 2.7 cm arterial flow IMPRESSION: Positive for retained products of conception
[2024-09-07 08:32] LABS: Basophils % (Auto) 0 % (0-2.5); Eosinophils # (Auto) 0.1 Thou/mm3 (0.0-0.5); Eosinophils % (Auto) 1 % (0-10); Hematocrit 30.4 % (36.0-46.0); Immature Granulocytes % (Auto) 0 % (0-0); Immature Granulocytes Auto 0.05 Thou/mm3 (0.00-0.00); Lymphocytes # (Auto) 1.7 Thou/mm3 (1.0-4.8); Lymphocytes % (Auto) 13 % (10-50); Mean Corpuscular HGB Conc 32.9 g/dl (31.0-37.0); Mean Corpuscular Volume 88 fL (80-100); Monocytes # (Auto) 0.1 Thou/mm3 (0.0-0.8); Monocytes % (Auto) 1 % (0-12); Neutrophils % (Auto) 85 % (37-80); Nucleated Red Blood Cell % 0 /100 WBC (0); Platelet Count 275 Thou/mm3 (140-440); RDW Standard Deviation 40.6 fL (36.4-46.3); Red Blood Count 3.45 Miln/mm3 (4.00-5.20); White Blood Count 12.9 Thou/mm3 (3.6-11.0)
[2024-09-07 08:52] LABS: Alanine Aminotransferase 23 U/L (10-49); Albumin, Serum 4.2 gm/dL (3.5-5.0); Albumin/Globulin Ratio 1.6 (1.2-2.2); Alkaline Phosphatase 107 U/L (46-116); Anion Gap 9 (7-16); Aspartate Amino Transferase 19 U/L (0-34); BUN/Creatinine Ratio 14 Ratio (12-20); Beta HCG,Quantitative 100 mIU/mL (<5.0); Bilirubin,Total 0.4 mg/dL (0.3-1.2); Blood Urea Nitrogen 10 mg/dL (9-23); Calcium 9.4 mg/dL (8.3-10.6); Calcium (Corrected) 9.4 mg/dL (8.5-10.1); Carbon Dioxide 23.7 mMol/L (20.0-31.0); Chloride 107 mMol/L (98-107); Creatinine (Component) 0.7 mg/dL (0.6-1.3); Estimated Creatinine Clearance 112.1 mL/min (>60); Globulin 2.6 gm/dL (2.3-3.5); Glucose 98 mg/dL (74-106); Osmolality,Calculated 278 (275-295); Potassium 3.6 mMol/L (3.4-5.1); Sodium 140 mMol/L (136-145); Total Protein 6.8 gm/dL (5.7-8.2); eGFR > 60 See Note
--- NOTE | 2024-09-07 08:54 | EDNOTE_ITS ---
ED General RME/HPI General Chief complaint: General Adult/Misc Complain Stated complaint: S/P , SHIVERS AND PAIN Time Seen by Provider: 09/07/24 10:28 Arrival date/time: 09/07/24 08:01 RME / HPI RME / HPI narrative: Patient is a 29 years old female A2 (last one 10 days ago s/p spontaneous 1st trimester) presents to the emergency department today stating that she is having generalized bodyaches, pain in her back and lower abdomen and chills. Patient reports that she had recent miscarriage and was seen in the ED on 08/28/24 when she was given shot of misoprostol. Pain is mostly located at lower back. She reports her bleeding reduced significantly after the last ER visit. She denies dysuria but wasn't able to urinate since yesterday. She denies diarrhea, nausea, vomiting, chest pain, SOB, purulent vaginal discharge. Related Data Previous Rx's ?Medication ?Instructions ?Recorded ibuprofen 600 mg tablet 600 mg PO Q6H PRN fever or p ain 10 09/07/24 days #40 tabs levofloxacin 500 mg tablet 500 mg PO QDAY 10 days #10 tabs 09/07/24 metronidazole 500 mg tablet 500 mg PO TID 7 days #21 t abs 09/07/24 ondansetron 4 mg disintegrating 4 mg PO Q6H PRN nausea and 09/07/24 tablet vomiting 5 days #20 tabs Allergies Allergy/AdvReac Type Severity Reaction Status Date / Time No Known Allergies Allergy Verified 09/07/24 08:04 Review of Systems Review of Systems Systems Reviewed: All systems reviewed, normal except as documented ED Exam Narrative Physical exam: Gen: Well-developed and well-nourished. HEENT: NCAT, PERRLA, EOMI, MMM, anicteric conjunctivae. CVS: normal S1 and S2. RRR. No M/R/G. Resp: CTA B/L. No rhonchi, rales, crackles or wheezing. Abd: soft, non-tender, non-distended. BS+ in all 4 quadrants. : suprapubic and CVA tenderness noted. MSK: Good ROM in BUE & BLE. No edema or rash. Neuro: CN II-XII grossly intact. Strength 5/5 in BUE & BLE. Alert and oriented x3. Psych: appropriate mood and affect. Course Quality Measures none Orders Category Date Time Status Patient Condition Routine Admission 09/07/24 11:09 Ordered SDC [Place in Surgical Day Care] Routine Admission 09/07/24 11:10 Active Activity as Tolerated Routine Care 09/07/24 11:09 Ordered Administer Rhogam NOW Care 09/07/24 14:19 Active Bedside Blood Glucose NOW Care 09/07/24 09:02 Active Bedside Influenza A&B Antigen Test NOW Care 09/07/24 08:32 Completed COVID-19 Screening Questionnaire NOW Care 09/07/24 10:58 Active Origination Specialist Q4H START 00 Care 09/07/24 09:02 Active Clip Operative Site as Needed X1 Care 09/07/24 11:09 Active Continuous Pulse Oximetry NOW Care 09/07/24 09:02 Completed DC Home When Criteria Met . Care 09/07/24 14:03 Active Decision to Admit X1 Care 09/07/24 10:58 Active In and Out Catheter X1 Care 09/07/24 09:02 Active Insert IV NOW Care 09/07/24 09:02 Active NPO NOW Care 09/07/24 10:57 Active NPO NOW Care 09/07/24 11:09 Active Obtain Written Consent For: NOW Care 09/07/24 11:09 Active Sequential Compression Device NOW Care 09/07/24 11:10 Active Strict Intake and Output Routine Care 09/07/24 09:02 Ordered Diet NPO (NOW) Diet 09/07/24 10:57 Completed Diet NPO (NOW) Diet 09/07/24 11:09 Active US pelvic complete Stat Exams 09/07/24 08:14 Completed Antibody Identification Stat Lab 09/07/24 11:22 Results Beta HCG,Quantitative Stat Lab 09/07/24 08:21 Completed Blood Culture (Lab) Stat Lab 09/07/24 09:19 Received CBC Stat Lab 09/07/24 08:21 Completed Comprehensive Metabolic Panel Stat Lab 09/07/24 08:21 Completed Lactate (Lactic Acid) Stat Lab 09/07/24 09:12 Completed Lactic Acid, 3 HR Stat Lab 09/07/24 13:29 Completed Partial Thromboplastin Time Stat Lab 09/07/24 08:21 Completed Procalcitonin Stat Lab 09/07/24 09:12 Completed Prothrombin Time with INR Stat Lab 09/07/24 08:21 Completed RHOGAM [Rho(D) Immune Globulin] Stat Lab 09/07/24 11:22 Results Red Blood Cells Stat Lab 09/07/24 11:22 Results Type and Screen Stat Lab 09/07/24 11:22 Results UA, C/S IF [Urinalysis, C/S if Indicated] Stat Lab 09/07/24 09:30 Completed Urine Culture Stat Lab 09/07/24 09:30 Received Acetaminophen Ivpb [Ofirmev Inj] Med 09/07/24 14:19 Active 1,000 mg in 100 ml IV Q6H Clindamycin 900Mg Ivpb [Cleocin/D5w Ivpb] 50 ml Med 09/07/24 10:34 Discontinued IV X1 Dexamethasone Inj [Decadron Inj] Med 09/07/24 13:42 Discontinued 10 mg .ROUTE .STK-MED ONE Gentamicin 300 mg Med 09/07/24 10:33 Discontinued Sodium Chloride 0.9% [Ns] 100 ml IV X1 Ketorolac Inj [Toradol Inj] Med 09/07/24 13:42 Discontinued 30 mg .ROUTE .STK-MED ONE Methylergonovine Inj [Methergine Inj] Med 09/07/24 14:15 Discontinued 0.2 mg .ROUTE .STK-MED ONE Morphine Inj Med 09/07/24 14:03 Active 3 mg IV Q5M PRN Ondansetron Inj [Zofran Inj] Med 09/07/24 13:42 Discontinued 4 mg .ROUTE .STK-MED ONE Ondansetron Inj [Zofran Inj] Med 09/07/24 14:03 Discontinued 4 mg IV X1 ONE Piper/Tazo 3.375 gm Premix [Zosyn] Med 09/07/24 10:57 Discontinued 3.375 gm in 50 ml IV X1 Propofol Inj [Diprivan Inj] Med 09/07/24 13:42 Discontinued 200 mg IV .STK-MED ONE Sodium Chloride 0.9% 1000 ml [Ns] 2,000 ml Med 09/07/24 09:03 Discontinued IV 999 mls/min Sodium Chloride 0.9% 500 ml [Ns] 500 ml Med 09/07/24 11:37 Discontinued IV 999 mls/hr Tranexamic Acid 1,000 mg Ivpb [Tranexamic Acid Ivpb] Med 09/07/24 14:19 Discontinued 1,000 mg in 100 ml IV STAT fentaNYL INJ [Sublimaze Inj] Med 09/07/24 13:42 Discontinued 100 mcg .ROUTE .STK-MED ONE fentaNYL INJ [Sublimaze Inj] Med 09/07/24 14:03 Active 25 mcg IV Q5M PRN Code Status Routine Oth 09/07/24 11:09 Ordered EKG (RT) Stat RT 09/07/24 09:02 Draft Oxygen Delivery NOW RT 09/07/24 09:02 Active Oxygen Delivery PRN RT 09/07/24 14:03 Active Vital Signs Vital signs: Vital Signs Temperature 99.0 F 09/07/24 08:09 Pulse Rate 118 H 09/07/24 08:09 Respiratory Rate 20 09/07/24 08:09 Blood Pressure 96/48 L 09/07/24 08:09 Pulse Oximetry (%) 100 09/07/24 08:09 Oxygen Delivery Method Room Air 09/07/24 08:09 [facility] Patient data External records reviewed:: [facility] previous records Clinical information provided by:: patient Social determinants that could affect healthcare access:: none Patient has the following chronic illnesses:: none How is presenting disease/condition affected by chronic disease/condition?: no chronic disease Evaluation data The following diagnostics were reviewed and interpreted by me:: lab results, radiology exam(s) and EKG tracing(s) Lab and/or radiology exams considered but not ordered:: CTAP Interpretation Summary: Endomitritis 2/2 retained products of conception Medications Medications considered but not ordered:: na Medication administrations:: Medication Administration History Fentanyl Citrate (Fentanyl Cit Inj 50 Mcg/Ml Amp 2ml) 25 mcg IV Q5M PRN PRN Reason: PAIN SCALE 1-3 (mild Stop: 09/07/24 16:04 Acetaminophen (Ofirmev Inj) 1,000 mg in 100 mls @ 250 mls/hr IV Q6H DWIGHT Stop: 09/08/24 08:42 Morphine Sulfate (Morphine Sulf Inj 10 Mg/Ml Vial) 3 mg IV Q5M PRN PRN Reason: PAIN SCALE 4-6 (Moderate Stop: 09/07/24 16:04 Discontinued Medications Dexamethasone Sodium Phosphate (Dexamethasone Sod Phos Inj 10 Mg/Ml Vial) Confirm Administered Dose 10 mg .ROUTE .STK-MED ONE Stop: 09/07/24 13:43 Fentanyl Citrate (Fentanyl Cit Inj 50 Mcg/Ml Amp 2ml) Confirm Administered Dose 100 mcg .ROUTE .STK-MED ONE Stop: 09/07/24 13:43 Sodium Chloride (Ns) 2,000 mls @ 999 mls/min IV .Q2M ONE Stop: 09/07/24 09:04 Last Infusion: 09/07/24 11:30 Dose: Infused Documented By: Admin: 09/07/24 10:09 Dose: 999 mls/min Documented By: Clindamycin Phosphate (Cleocin/D5w Ivpb) 50 mls @ 100 mls/hr IV X1 ONE Stop: 09/07/24 11:03 Last Infusion: 09/07/24 11:31 Dose: Infused Documented By: Admin: 09/07/24 10:50 Dose: 100 mls/hr Documented By: Gentamicin Sulfate 300 mg/ (Sodium Chloride) 107.5 mls @ 97.604 mls/hr IV X1 ONE Stop: 09/07/24 11:39 Last Admin: 09/07/24 12:03 Dose: 97.604 mls/hr Documented By: Piperacillin/Tazobactam/Dextrose (Zosyn) 3.375 gm in 50 mls @ 100 mls/hr IV X1 ONE Stop: 09/07/24 11:26 Last Infusion: 09/07/24 12:12 Dose: Infused Documented By: Admin: 09/07/24 11:31 Dose: 100 mls/hr Documented By: Sodium Chloride (Ns) 500 mls @ 999 mls/hr IV .Q31M ONE Stop: 09/07/24 12:07 Tranexamic Acid (Tranexamic Acid Ivpb) 1,000 mg in 100 mls @ 200 mls/hr IV STAT STA Stop: 09/07/24 14:48 Ketorolac Tromethamine (Ketorolac Inj 30 Mg/Ml Vial) Confirm Administered Dose 30 mg .ROUTE .STK-MED ONE Stop: 09/07/24 13:43 Methylergonovine Maleate (Methylergonovine Inj 0.2 Mg/Ml Vial) Confirm Administered Dose 0.2 mg .ROUTE .STK-MED ONE Stop: 09/07/24 14:16 Ondansetron HCl (Ondansetron Inj 2 Mg/Ml Inj 2 Ml) Confirm Administered Dose 4 mg .ROUTE .STK-MED ONE Stop: 09/07/24 13:43 Ondansetron HCl (Ondansetron Inj 2 Mg/Ml Inj 2 Ml) 4 mg IV X1 ONE Stop: 09/07/24 14:04 Propofol (Propofol Inj 10 Mg/Ml Vial 20 Ml) Confirm Administered Dose 200 mg IV .STK-MED ONE Stop: 09/07/24 13:43 as above Consultations Consultation(s) initiated? (list below): No Diagnosis Differential Diagnosis ED Complaint MDM: Pyelonephritis, ectopic , endometritis, appendicitis, ovarian tors Most likely diagnosis given after review of the tests above:: Endomitritis 2/2 retained products of conception Admission Indicated Admission indicated?: indicated Explain why admission is indicated or not indicated:: Patient is septic due to endometritis 2/2 retained products of conception. Needs admission and emergent D&C. Admission Request Was there a request for admission?: Yes Admission Attestation Admission request attestation: Discussed case with Dr. Sheth from OBGYN service regarding admission. Discussed patients ED course, exam findings, labs, and radiology results. The Hospitalist agrees to accept the patient for admission. Disposition Plan Disposition Plan: Admit Medical Decision Making MDM Narrative MDM Narrative: The patient is a 29-year-old female, A2, who presents to the emergency department with generalized body aches, back and lower abdominal pain, and chills. She reports a recent spontaneous in the first trimester 10 days ago and was seen in the ED on 08/28/24 for which she received a shot of misoprostol. While her bleeding has significantly reduced since her last visit, she is now unable to urinate since yesterday. She denies dysuria, diarrhea, nausea, vomiting, chest pain, shortness of breath, or purulent vaginal discharge. Physical examination is significant for suprapubic and CVA tenderness; however, the abdomen remains soft and non-tender overall. Pelvic ultrasound reveals retained products of conception. The patient has been diagnosed with sepsis secondary to endometritis due to retained products of conception. Initial management included intravenous clindamycin and gentamycin, later escalated to Zosyn per OBGYN recommendations. Emergent admission is necessary for surgical intervention with dilation and curettage (D&C). The patient will require close monitoring of vital signs, laboratory studies, and response to antibiotics during her inpatient stay. Coordination with obstetrics and gynecology for definitive treatment is crucial to optimize outcomes. Differential Diagnosis Differential Diagnosis: Pyelonephritis, ectopic , endometritis, appendicitis, ovarian tors Lab Data 09/07/24 08:21 09/07/24 08:21 Labs: Lab Results 09/07/24 09/07/24 09/07/24 Range/Units 08:21 09:12 09:30 WBC 12.9 H (3.6-11.0) Thou/mm3 RBC 3.45 L (4.00-5.20) Miln/mm3 Hgb 10.0 L (12.0-16.0) g/dL Hct 30.4 L (36.0-46.0) % MCV 88 (80-100) fL MCH 29.0 (25.0-35.0) pg MCHC 32.9 (31.0-37.0) g/dl RDW Std Deviation 40.6 (36.4-46.3) fL Plt Count 275 (140-440) Thou/mm3 Neut % (Auto) 85 H (37-80) % Lymph % (Auto) 13 (10-50) % [place] % (Auto) 1 (0-12) % Eos % (Auto) 1 (0-10) % Baso % (Auto) 0 (0-2.5) % Neut # (Auto) 11.0 H (1.8-7.7) Thou/mm3 Lymph # (Auto) 1.7 (1.0-4.8) Thou/mm3 [place] # (Auto) 0.1 (0.0-0.8) Thou/mm3 Eos # (Auto) 0.1 (0.0-0.5) Thou/mm3 Baso # (Auto) 0.0 (0.0-0.2) Thou/mm3 Immature Gran # (Auto) 0.05 H (0.00-0.00) Thou/mm3 Absolute Nucleated RBC 0.00 (0.00-0.00) Thou/mm3 Immature Gran % 0 (0-0) % Nucleated RBC % 0 (0) /100 WBC PT 11.2 (9.0-12.2) Seconds INR 1.0 (0.9-1.3) APTT 30.2 (22.0-36.0) Seconds Sodium 140 (136-145) mMol/L Potassium 3.6 (3.4-5.1) mMol/L Chloride 107 (98-107) mMol/L Carbon Dioxide 23.7 (20.0-31.0) mMol/L Anion Gap 9 (7-16) BUN 10 (9-23) mg/dL Creatinine 0.7 (0.6-1.3) mg/dL Estim Creat Clear Calc 112.1 (>60) mL/min eGFR > 60 (60 - ) See Note BUN/Creatinine Ratio 14 (12-20) Ratio Glucose 98 (74-106) mg/dL Calculated Osmolality 278 (275-295) Lactic Acid 3.2 H (0.4-2.0) mMol/L Calcium 9.4 (8.3-10.6) mg/dL Corrected Calcium 9.4 (8.5-10.1) mg/dL Total Bilirubin 0.4 (0.3-1.2) mg/dL AST 19 (0-34) U/L ALT 23 (10-49) U/L Alkaline Phosphatase 107 (46-116) U/L Total Protein 6.8 (5.7-8.2) gm/dL Albumin 4.2 (3.5-5.0) gm/dL Globulin 2.6 (2.3-3.5) gm/dL Albumin/Globulin Ratio 1.6 (1.2-2.2) Procalcitonin 0.12 (0.0-0.49) ng/ml Beta HCG, Quant 100 (<5.0) mIU/mL Ur Collection Type Clean Catch Urine Color Lt-Yellow (Lt Yel-Yel) Urine Clarity Hazy (Clear/Hazy) Urine pH 6.5 (5.0-7.0) Ur Specific [place] 1.019 (1.001-1.035) Urine Protein Negative (Neg - Trace) Urine Glucose (UA) Negative (Negative) Urine Ketones Negative (Negative) Urine Blood 3+ A (Negative) Urine Nitrite Negative (Negative) Urine Bilirubin Negative (Negative) Urine Urobilinogen (Auto) Negative (0.0-1.0) mg/dL Ur Leukocyte Esterase Positive (Negative) Urine RBC 311 H (0-3) /hpf Urine WBC 92 H (0-5) /hpf Ur Squamous Epith Cells 3 (0-5) /hpf Urine Bacteria None (None) Ur Culture Indicated? Yes Blood Type Rho(D) IG Studies Antibody Screen Antibody Identification Crossmatch Blood Bank Wristband ID 09/07/24 09/07/24 Range/Units 11:22 13:29 WBC (3.6-11.0) Thou/mm3 RBC (4.00-5.20) Miln/mm3 Hgb (12.0-16.0) g/dL Hct (36.0-46.0) % MCV (80-100) fL MCH (25.0-35.0) pg MCHC (31.0-37.0) g/dl RDW Std Deviation (36.4-46.3) fL Plt Count (140-440) Thou/mm3 Neut % (Auto) (37-80) % Lymph % (Auto) (10-50) % [place] % (Auto) (0-12) % Eos % (Auto) (0-10) % Baso % (Auto) (0-2.5) % Neut # (Auto) (1.8-7.7) Thou/mm3 Lymph # (Auto) (1.0-4.8) Thou/mm3 [place] # (Auto) (0.0-0.8) Thou/mm3 Eos # (Auto) (0.0-0.5) Thou/mm3 Baso # (Auto) (0.0-0.2) Thou/mm3 Immature Gran # (Auto) (0.00-0.00) Thou/mm3 Absolute Nucleated RBC (0.00-0.00) Thou/mm3 Immature Gran % (0-0) % Nucleated RBC % (0) /100 WBC PT (9.0-12.2) Seconds INR (0.9-1.3) APTT (22.0-36.0) Seconds Sodium (136-145) mMol/L Potassium (3.4-5.1) mMol/L Chloride (98-107) mMol/L Carbon Dioxide (20.0-31.0) mMol/L Anion Gap (7-16) BUN (9-23) mg/dL Creatinine (0.6-1.3) mg/dL Estim Creat Clear Calc (>60) mL/min eGFR (60 - ) See Note BUN/Creatinine Ratio (12-20) Ratio Glucose (74-106) mg/dL Calculated Osmolality (275-295) Lactic Acid 0.6 (0.4-2.0) mMol/L Calcium (8.3-10.6) mg/dL Corrected Calcium (8.5-10.1) mg/dL Total Bilirubin (0.3-1.2) mg/dL AST (0-34) U/L ALT (10-49) U/L Alkaline Phosphatase (46-116) U/L Total Protein (5.7-8.2) gm/dL Albumin (3.5-5.0) gm/dL Globulin (2.3-3.5) gm/dL Albumin/Globulin Ratio (1.2-2.2) Procalcitonin (0.0-0.49) ng/ml Beta HCG, Quant (<5.0) mIU/mL Ur Collection Type Urine Color (Lt Yel-Yel) Urine Clarity (Clear/Hazy) Urine pH (5.0-7.0) Ur Specific [place] (1.001-1.035) Urine Protein (Neg - Trace) Urine Glucose (UA) (Negative) Urine Ketones (Negative) Urine Blood (Negative) Urine Nitrite (Negative) Urine Bilirubin (Negative) Urine Urobilinogen (Auto) (0.0-1.0) mg/dL Ur Leukocyte Esterase (Negative) Urine RBC (0-3) /hpf Urine WBC (0-5) /hpf Ur Squamous Epith Cells (0-5) /hpf Urine Bacteria (None) Ur Culture Indicated? Blood Type O Negative Rho(D) IG Studies Ready Antibody Screen POSITIVE Antibody Identification Anti-D from RhoGam Crossmatch See Detail Blood Bank Wristband ID Yes Discharge Plan Plan Patient Disposition: Other Care w/in Hosp ([facility]) Disposition Comment: Please see Dr Sheth in office in 1wk. [phone] Patient condition on transfer: Stable Problem List Clinical Impression: Endometritis following abortive
--- NOTE | 2024-09-07 09:02 | EKG_ITS ---
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
[2024-09-07 09:41] LABS: Collection Type, Urine Clean Catch
[2024-09-07 09:46] LABS: Lactate (Lactic Acid) 3.2 mMol/L (0.4-2.0)
[2024-09-07 09:52] LABS: Bilirubin,Urine Negative (Negative); Blood,Urine 3+ (Negative); Color,Urine Lt-Yellow (Lt Yel-Yel); Glucose, Urine Negative (Negative); Ketones,Urine Negative (Negative); Leukocyte Esterase,Urine Positive (Negative); Nitrite,Urine Negative (Negative); PH,Urine 6.5 (5.0-7.0); Protein,Urine Negative (Neg - Trace); RBC,Urine 311 /hpf (0-3); Specific Gravity,Urine 1.019 (1.001-1.035); Squamous Epithelial Cell,Urine 3 /hpf (0-5); Urobilinogen,Urine Negative mg/dL (0.0-1.0); WBC,Urine 92 /hpf (0-5)
[2024-09-07 10:01] LABS: Partial Thromboplastin Time 30.2 Seconds (22.0-36.0); Prothrombin Time 11.2 Seconds (9.0-12.2)
[2024-09-07 10:07] LABS: Clarity,Urine Hazy (Clear/Hazy); Culture Indicated,Urine Yes
[2024-09-07] MEDS: SODIUM CHLORIDE 0.9% 1000 ML 2,000 ML 999 ML IV (10:09)
[2024-09-07 10:18] LABS: Procalcitonin 0.12 ng/ml (0.0-0.49)
[2024-09-07] MEDS: CLINDAMYCIN 900MG IVPB 50 ML 100 MG IV (10:50)
[2024-09-07] MEDS: PIPER/TAZO 3.375 GM PREMIX 3.375 GM/50 ML BAG IV (11:31)
--- NOTE | 2024-09-07 11:38 | ESHP_ITS ---
Documentation for date of: 09/07/24 [employer] DIRECTOR - HPI History of Present Illness History of present illness: History of Present Illness The patient is a 29-year-old A2 who presents to the emergency room 10 days status post-spontaneous 1st trimester miscarriage with generalized body aches, back pain, lower abdominal pain, chills, and fever. She had a recent spontaneous for which she was seen in the emergency room on 08-28-2024 and was given misoprostol. Her bleeding was significantly reduced after the ER visit, but since then she reports being unable to void and feeling progressively sicker. The patient denies any significant blood loss, loss of consciousness, or other signs of major blood loss anemia. The patient's chart from her visit on 08-28-2024 indicates she was approximately 9 weeks gestation. She was discharged home with instructions to follow up with an OBGYN provider. She was evaluated again in the ER on 08-29-2024 and prescribed misoprostol 200 mg QID for 5 days. Currently, there is concern for retained products of conception and possible infection. Ultrasound today: INDICATIONS: Vaginal bleeding 1 week, post medical FINDINGS: Uterus 8.5 cm with vascular thickened endometrium 2.9 cm Right ovary 3.4 cm arterial flow 16mm follicular cyst Left ovary 2.7 cm arterial flow IMPRESSION: Positive for retained products of conception Review of Systems Review of Systems Systems Reviewed: All systems reviewed, normal except as documented Meds Home Medications and Allergies Home Medications ?Medication ?Instructions ?Recorded ?Confirmed ?Type vits no.124-ferrous fum 1 tab PO QDAY 2 04/16/22 History 27 mg iron-folic acid 800 mcg tablet ( Vitamin) Allergies Allergy/AdvReac Type Severity Reaction Status Date / Time No Known Allergies Allergy Verified 09/07/24 08:04 Exam - [employer] DIRECT[employer] Vital Signs Temp Pulse Resp BP Pulse Ox O2 Del Method 101.4 F H 108 H 17 107/73 100 Room Air 09/07/24 08:29 09/07/24 10:55 09/07/24 10:55 09/07/24 10:55 09/07/24 10:55 09/07/24 10:55 Constitutional Constitutional: no acute distress Routine HEENT Exam Head: Present normocephalic and atraumatic Eye: Present EOMI and PERRL ENT: Present mucous membranes moist Routine Neck Exam Neck: Present supple and trachea midline Routine Respiratory Exam Respiratory: Present chest non-tender, lungs clear, normal breath sounds and no resp distress Routine Cardiovascular Exam Cardiovascular: Present RRR Routine Abdominal Exam Abdominal: Present soft and normoactive bowel sounds Comments: Tenderness present in all quadrants Routine Extremities Exam Extremities: Present full ROM Routine Skin Exam Skin: Present intact and dry Routine Neurological Exam Neurological: Present alert, oriented X3 and CN II-XII intact Routine Psychiatric Exam Psychiatric: Present normal affect and normal thought process [employer] DIRECT[employer] - Results Labs 09/07/24 08:21 09/07/24 08:21 Labs: Short CBC 09/07/24 Range/Units 08:21 WBC 12.9 H (3.6-11.0) Thou/mm3 Hgb 10.0 L (12.0-16.0) g/dL Hct 30.4 L (36.0-46.0) % Plt Count 275 (140-440) Thou/mm3 BMP 09/07/24 08:21 Sodium 140 Potassium 3.6 Chloride 107 Carbon Dioxide 23.7 BUN 10 Creatinine 0.7 Glucose 98 Calcium 9.4 Liver Function 09/07/24 Range/Units 08:21 Total Bilirubin 0.4 (0.3-1.2) mg/dL AST 19 (0-34) U/L ALT 23 (10-49) U/L Alkaline Phosphatase 107 (46-116) U/L Albumin 4.2 (3.5-5.0) gm/dL Urine 09/07/24 Range/Units 09:30 Urine Color Lt-Yellow (Lt Yel-Yel) Urine Clarity Hazy (Clear/Hazy) Urine pH 6.5 (5.0-7.0) Ur Specific [place] 1.019 (1.001-1.035) Urine Protein Negative (Neg - Trace) Urine Glucose (UA) Negative (Negative) Assessment and Plan Assessment and plan (1) Rh negative, delivered, current hospitalization: Status: Acute Assessment and plan: RhoGAM administration postprocedure (2) , missed: Status: Acute Assessment and plan: Incomplete spontaneous with retained products of conception and suspected infection Patient is a 29-year-old A2 presenting 10 days post-spontaneous 1st trimester miscarriage at approximately 9 weeks gestation. She reports generalized body aches, back pain, lower abdominal pain, chills, and fever. Patient was previously seen in the ER on 08/28/2024 and given misoprostol, with reduced bleeding afterward. She was evaluated again on 08/29/2024 and prescribed misoprostol 200 mg QID for 5 days. Despite treatment, patient reports progressive worsening of symptoms and inability to void. There is concern for retained products of conception with possible infection. 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 The patient's history of recent miscarriage, followed by incomplete passage of products of conception and development of systemic symptoms, strongly suggests retained products of conception with possible infection. This diagnosis is supported by the patient's report of inability to void and progressive worsening of symptoms. The patient's prior ER visits on 08/28/2024 and 08/29/2024, where misoprostol was prescribed, indicate an attempt at medical management of the incomplete . However, the persistence and worsening of symptoms suggest that this approach was unsuccessful. The decision to proceed with surgical management via dilatation and curettage (D&C) is based on the clinical presentation and the risk of serious infection if left untreated. The procedure will allow for complete removal of retained products and resolution of the potential infection source. Potential complications of the procedure, such as bleeding or uterine perforation, were discussed with the patient. Quality Measures Quality Measures VTE prophylaxis
[2024-09-07 12:38] LABS: Reflex Lactate? Y
[2024-09-07 13:37] LABS: Lactic Acid, 3 HR 0.6 mMol/L (0.4-2.0)
--- NOTE | 2024-09-07 14:22 | SUR.PHASEI ---
pt received from OR in recovery bay 2. pt obtunded, breathing unlabored on oxymask 6l, oral airway in place. v/s stable. pt dressing peripad cdi. report received from Gideon SERRANO and Dr. Bolden.
--- NOTE | 2024-09-07 15:07 | PD.GYNPROC ---
Operative Note - CERTIFIED MEDICAL TECHNICIAN Procedure Date of procedure: 09/07/24 Procedure Performed: Suction dilatation and curettage Indication: Missed with retained products of conception and suspected septic endometritis Anesthesia type: General Procedure description: Informed consent was obtained and the patient was taken to the operating room.? Identity was confirmed by double identifiers and she was placed on the operating table.? General anesthesia was administered and she was now positioned on Yuan stirrups in the dorsal lithotomy position.? The perineum was prepped in the usual sterile fashion and sterile drapes were applied.? A straight catheter was used to empty the bladder. A weighted speculum was placed in the posterior vaginal wall.? A right angle retractor was used to retract the anterior wall.? A single-tooth tenaculum was used to grasp the anterior lip of the cervix and the cervix was placed under traction.? The cervical length from the external to the internal loss was measured, and a uterine sound was used to measure the uterine length.? The cervix was noted to be dilated to about 12 mm.? Our 12 mm suction cannula was introduced and multiple gentle passes were made until all tissue and blood clots were evacuated.? Endometrial great was palpated, and the uterus was noted to contract down.? The suction cannula was removed and a gentle curettage was performed using a standard curette.? All instruments were now withdrawn.? Uterine bleeding was noted to be minimal\ The tenaculum was removed from the cervix.? The cervix was visualized and noted to be adequately hemostatic.? The speculum was removed from the vaginal canal.? The patient was now cleaned, undraped, taken out of lithotomy position, general anesthesia was reversed and she was now transferred to recovery room in stable and awake condition.? The patient tolerated the entire procedure well.? All instrument, sponge and lap counts were correct x2. Estimated blood loss (ml): 200 Complications: none Surgical staff Operation Date: 09/07/24 13:45 Case Staff Anesthesiologist: Grover Bolden Diagnosis Discharge Diagnosis (1) Endometritis following abortive : Status: Acute (2) Rh negative, delivered, current hospitalization: Status: Acute (3) , missed: Status: Acute Problem List Completed Was Problem List Reviewed/Reconciled?: Yes
--- NOTE | 2024-09-07 16:50 | SUR.PHASEII ---
pt awake and alert, breathing unlabored on room air. v/s stable. pt dressing peripad cdi. pt able to ambulate to wheelchair with steady gait. d/c instructions given with in room, all questions answered. pt d/c via wheelchair with all belongings.
== END 2024-09-07 16:50 | disposition home or self-care (01) ==
LOC: SERX 10:39 → S2EX 11:14
PROVIDERS: Nurse Practitioner Primary Care; Student in an Organized Health Care Education/Training Program; Emergency Provider Emergency Medicine; Referring Provider Obstetrics & Gynecology; Visit Provider Obstetrics & Gynecology
PROC: (CPT 58120; principal; 2024-09-07 13:30)
DX: O02.1 Missed abortion (principal); O03.4 Incomplete spontaneous abortion without complication; O21.9 Vomiting of pregnancy, unspecified; Z3A.09 9 weeks gestation of pregnancy; Z01.810 Encounter for preprocedural cardiovascular examination; O86.12 Endometritis following delivery
CPT/HCPCS: 59820; 36415; 76856; 80053; 81001; 83605; 84145; 84702; 85025; 85610; 85730; 86850; 86870; 86900; 86901; 86920; 87040; 87086; 87400; 93005; 96361; 96365; 96367; 99285; A4217; J1100; J1580; J1885; J2210; J2405; J2543; J2704; J2790; J3010; J7030; J7050; S0077; J0736

== ENCOUNTER 2024-09-14 08:54 | Outpatient (AMB) | payer MEDICAID, SELFPAY ==
[2024-09-14 09:00] VITALS: BP 106/73; PULSE 100; RESP 16; TEMP 36; O2SAT 97
--- NOTE | 2024-09-14 09:00 | AMB.GYNCLNOT ---
Vital Signs 09/14/24 09:00 Weight 80.399 kg Weight Measurement Method Standing Scale BP 106/73 Blood Pressure Source Automatic Cuff Blood Pressure Location Left Upper Arm Position Sitting Respiration 16 Pulse 100 Pulse Source Monitor Temp 96.8 F Temp Source Oral Pulse Oximetry (%) 97 Oxygen Delivery Method Room Air Allergies/Home Meds Allergies & Medications Allergies No Known Allergies Allergy (Verified 09/14/24 09:01) Medication Reconciliation norgestimate 0.25 mg-ethinyl estradiol 0.035 mg tablet (Sprintec (28)) 1 tab PO QDAY #84 tabs 09/14/24 [Rx] Intake Visit Data Collection New Patient or Established: Established Patient (seen at [facility] within 3 years) Reason for Visit:: ER, Surgery follow up Seen by Clinical Staff ONLY (RN/MA): No Design Eng Required: Yes Design Eng's name/title: BLU ROSALES / DELI MANAGER Do You Feel Safe at Home: Yes Authorities Contacted: N/A PCP or OBGYN visit in last 3 months: Yes Date of Last PCP or OBGYN visit: 09/07/24 Hx Now: No Are you currently on any form of Control: No Pain Present Currently: Yes Pain Location: Abdomen Pain Scale Used: Hernandez-Cervantes/Numerical Pain scale:: 3 Smoking Status Smoking Status: Never smoker 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 1. Little interest or pleasure in doing things: not at all 2. Feeling down, depressed, or hopeless: not at all Total score: 0 PHQ-9 3. Trouble falling or staying asleep, or sleeping too much: Not at all 4. Feeling tired or having little energy: Not at all 5. Poor appetite or overeating: Not at all 6. Feeling bad about yourself - or that you are a failure or have let yourself or your family down: Not at all 7. Trouble concentrating on things, such as reading the newspaper or watching television: Not at all 8. Moving or speaking so slowly that other people could have noticed? - Or the opposite - being so fidgety or restless that you have been moving around a lot more than usual: not at all 9. Thoughts that you would be better off or of hurting yourself in some way: Not at all Total score: 0 If you checked off any problems, how difficult have these problems made it for you to do your work, take care of things at home, or get along with other people?: not difficult at all Source: Developed by Drs. Jorgito Jones, Nette Sommer, Frankie Blankenship and colleagues, with an educational dat from [employer]. Depression screen completed yes Social History Living Situation History Lives With: Family Housing: House Tobacco History Smoking Status: Never smoker Alcohol History Alcohol Intake: Never Domestic Abuse History Do You Feel Safe at Home: Yes Past Medical History Past Medical History Have you ever been diagnosed with any of the following: Neurological Problems Seizures: No Cardiology Problems Congestive Heart Failure: No Respiratory Problems Chronic Obstructive Pulmonary Disease (COPD): No Genital/Urinary Problems Renal Disease: No Reproductive Problems Pelvic Inflammatory Disease: No Musculoskeletal Problems Carpal Tunnel Syndrome: No Head,Eye,Nose,Throat Problems Cataracts: No Endocrine Problems Diabetes Mellitus Type 1: No Diabetes Mellitus Type 2: No Other Problems Hospitalization: No Down Syndrome: No Developmental Delay: No Falls: No Blood Transfusions: No Blood Transfusion Reaction: No Anesthesia Reactions: No Organ Transplant: No Surgical History Hysterectomy: No History of Present Illness HPI Pop Wylie presents for 1 week postoperative visit status post suction dilatation and curettage done in the emergency room. Patient had presented with signs of septic which triggered a sepsis alert and she was treated with Zosyn prior to surgery. She was discharged home on oral antibiotic Patient reports that bleeding has slowed down. She denies lightheadedness and dizziness. The patient mentions experiencing cramping of the uterus, which is attributed to the medications administered. Lab reports confirm a miscarriage, with complete clearance of tissue. Patient has a history of irregular menstrual cycles. Review of Systems Review of Systems Systems Reviewed: All systems reviewed, normal except as documented Exam General Limitations: no limitations General Appearance: alert, in no apparent distress, comfortable, cooperative, healthy appearing, well developed and well groomed Head Head exam: atraumatic, normocephalic and normal inspection Neck Neck exam: Present normal inspection, full ROM and trachea midline Chest Chest inspection: Present normal inspection and symmetric chest wall rise Abdominal Abdominal exam: Present soft and normal bowel sounds Extremities Extremities exam: Present normal inspection and full ROM Back Back exam: Present normal inspection and full ROM Psych Psychiatric exam: Present normal affect and normal mood Skin Skin exam: Present warm, dry, intact and normal color Assessment & Plan Diagnosis / Problem List (1) Rh negative, delivered, current hospitalization: Status: Acute Plan: Received RhoGAM and surgery (2) , missed: Status: Acute Plan: Patient had a recent miscarriage. Lab report confirms the miscarriage and complete evacuation of uterine contents. Patient reports decreased bleeding, no lightheadedness, and no dizziness. Cramping is attributed to the administered medications. - No further interventions required for miscarriage management - Discuss family planning options (3) Endometritis following abortive : Status: Acute Plan: Now resolved after antibiotics (4) Encounter for initial prescription of contraceptive pills: Status: Acute Plan: Patient is considering contraception options. Due to reported history of irregular menstrual cycles, oral contraceptive pills are deemed more appropriate than Depo-Provera injection. - Prescribe oral contraceptive pills - Provide consent form for tubal ligation - Educate patient on permanent and irreversible nature of tubal ligation - Mandatory 30-day waiting period before tubal ligation procedure - Send prescription to [place] [facility] Office Procedures OB Clinic LOC & Office Proc's Nursing/Assessment Patient Status: Established Patient OB Clinic Nursing Assessment: BP Monitoring, Medication Reconciliation, Update PMH in EMR and Vital Signs OB Clinic Coordination of Care: Complex Care and Chronic Disease 1-5, Consent,records obtained, informed consent, Education Simp Pt/Fam and Staff clarify orders Established Patient Charge Established Patient Point Assignment: 100 Established Patient Point Charge: EP Level 3 (80-115)
== END 2024-09-14 09:53 | disposition home or self-care (01) ==
LOC: HODSOBC 08:54
PROVIDERS: Supervising Provider Obstetrics & Gynecology; Visit Provider Obstetrics & Gynecology
DX: O03.9 Complete or unspecified spontaneous abortion without complication (principal); O03.5 Genital tract and pelvic infection following complete or unspecified spontaneous abortion; Z30.011 Encounter for initial prescription of contraceptive pills
CPT/HCPCS: 99213; G0463

== ENCOUNTER 2024-11-11 10:43 | Outpatient (AMB) | payer MEDICAID, SELFPAY ==
[2024-11-11 10:51] VITALS: BP 112/75; PULSE 86; RESP 17; TEMP 36.6; O2SAT 98
--- NOTE | 2024-11-11 10:51 | AMB.GYNCLNOT ---
Vital Signs 11/11/24 10:51 Weight 79.605 kg Weight Measurement Method Standing Scale BP 112/75 Blood Pressure Source Automatic Cuff Blood Pressure Location Right Upper Arm Position Sitting Respiration 17 Pulse 86 Pulse Source Monitor Temp 97.8 F Temp Source Temporal Artery Scan Pulse Oximetry (%) 98 Oxygen Delivery Method Room Air Allergies/Home Meds Allergies & Medications Allergies No Known Allergies Allergy (Verified 11/11/24 10:53) Medication Reconciliation norgestimate 0.25 mg-ethinyl estradiol 0.035 mg tablet (Sprintec (28)) 1 tab PO QDAY #84 tabs 09/14/24 [Rx Confirmed 11/11/24] drospirenone 3 mg-ethinyl estradiol 0.02 mg tablet (CIPRIANO (28)) 1 tab PO QDAY 84 days #84 tabs 11/11/24 [Rx] Intake Visit Data Collection New Patient or Established: Established Patient (seen at [facility] within 3 years) Reason for Visit:: Pre-operative visit for scheduled laparoscopic surgical sterilization, patient requesting cancellation of surgery Seen by Clinical Staff ONLY (RN/MA): No Zipper Trimmer Required: Yes Zipper Trimmer's name/title: BLU ROSALES MA Do You Feel Safe at Home: Yes Authorities Contacted: N/A PCP or OBGYN visit in last 3 months: Yes Date of Last PCP or OBGYN visit: 09/14/24 Hx Now: No Are you currently on any form of Control: Yes Last menstrual period: 10/28/24 Pain Present Currently: No Pain Scale Used: Hernandez-Cervantes/Numerical Pain scale:: 0 Smoking Status Smoking Status: Never smoker 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 1. Little interest or pleasure in doing things: not at all 2. Feeling down, depressed, or hopeless: not at all Total score: 0 PHQ-9 3. Trouble falling or staying asleep, or sleeping too much: Not at all 4. Feeling tired or having little energy: Not at all 5. Poor appetite or overeating: Not at all 6. Feeling bad about yourself - or that you are a failure or have let yourself or your family down: Not at all 7. Trouble concentrating on things, such as reading the newspaper or watching television: Not at all 8. Moving or speaking so slowly that other people could have noticed? - Or the opposite - being so fidgety or restless that you have been moving around a lot more than usual: not at all 9. Thoughts that you would be better off or of hurting yourself in some way: Not at all Total score: 0 If you checked off any problems, how difficult have these problems made it for you to do your work, take care of things at home, or get along with other people?: not difficult at all Source: Developed by Drs. Jorgito Jones, Nette Sommer, Frankie Blankenship and colleagues, with an educational dat from [employer]. Depression screen completed yes Social History Living Situation History Lives With: Family Housing: House Tobacco History Smoking Status: Never smoker Alcohol History Alcohol Intake: Never Domestic Abuse History Do You Feel Safe at Home: Yes History of Present Illness HPI Narrative Inessa Verdin, a 29-year-old female, presents for a pre-operative visit for laparoscopic surgical sterilization scheduled for November 12, 2024. The patient has decided to cancel the scheduled surgery, expressing a desire to postpone it for approximately 6 months. During the visit, Ms. Verdin communicated her change of mind regarding the sterilization procedure. She did not provide specific reasons for this decision but indicated a potential interest in reconsidering the surgery in about 6 months. In light of this change, the patient inquired about continuing her current control method, specifically mentioning control pills. No other health concerns or symptoms were discussed during this encounter. Medications and Supplements - control pills Exam General General Appearance: alert, in no apparent distress and healthy appearing Head Head exam: atraumatic Neck Neck exam: Present normal inspection and trachea midline Chest Chest inspection: Present normal inspection and symmetric chest wall rise External exam: Present normal external exam; Absent tenderness Neuro Neurological exam: Present oriented X3 Psych Psychiatric exam: Present normal affect and normal mood Assessment & Plan Diagnosis / Problem List (1) Encounter for initial prescription of contraceptive pills: Status: Acute Plan Problem List - Scheduled for laparoscopic surgical sterilization Assessment - Patient declines scheduled laparoscopic surgical sterilization - Patient requests cancellation of surgery - Patient considering rescheduling procedure in 6 months - Patient requests continuation of oral contraceptives Plan - Cancel scheduled laparoscopic surgical sterilization for November 12, 2024 - Prescribe one-year supply of control pills - Send prescription to [place] pharmacy - Patient to return in 6 months if she reconsiders sterilization, will require new paperwork
== END 2024-11-11 11:01 | disposition home or self-care (01) ==
LOC: HODSOBC 10:43
PROVIDERS: PCP Obstetrics & Gynecology; Referring Provider Obstetrics & Gynecology; Supervising Provider Obstetrics & Gynecology; Visit Provider Obstetrics & Gynecology
DX: Z30.011 Encounter for initial prescription of contraceptive pills (principal)
CPT/HCPCS: 99213; G0463

== ENCOUNTER 2025-05-25 10:33 | Outpatient (AMB) | payer MEDICAID, SELFPAY ==
[2025-05-25 10:50] VITALS: BP 115/76; PULSE 92; RESP 18; TEMP 36.8; O2SAT 98; BMI 31.8
--- NOTE | 2025-05-25 10:50 | AMB.OBINITIA ---
Vital Signs 05/25/25 10:50 Height 1.6 m Height Method Stated Weight 81.42 kg Weight Measurement Method Standing Scale BMI 31.8 BP 115/76 Blood Pressure Source Automatic Cuff Blood Pressure Location Right Upper Arm Position Sitting Respiration 18 Pulse 92 Pulse Source Monitor Temp 98.2 F Temp Source Temporal Artery Scan Pulse Oximetry (%) 98 Oxygen Delivery Method Room Air Allergies/Home Meds Allergies & Medications Allergies No Known Allergies Allergy (Verified 05/25/25 10:53) Intake Visit Data Collection New Patient or Established: Established Patient (seen at [facility] within 3 years) Reason for Visit:: OBI Seen by Clinical Staff ONLY (RN/MA): No Toxics Program Officer Required: No Do You Feel Safe at Home: Yes Authorities Contacted: N/A PCP or OBGYN visit in last 3 months: No Hx Now: Yes Are you currently on any form of Control: No Last menstrual period: 03/30/25 Pain Present Currently: No Pain Scale Used: Hernandez-Cervantes/Numerical Pain scale:: 0 Smoking Status Smoking Status: Never smoker Immunizations Flu Vaccine in the Last 12 Months: No Flu Vaccine Exclusion Criteria: No Exclusion Criteria Questionnaires Covid-19 Vaccine Questionnaire Has patient been vacinated for Covid-19 Have you been vacinated for Covid-19: No PHQ-9 PHQ-2 Over the last 2 weeks, how often have you been bothered by any of the following problems? 1. Little interest or pleasure in doing things: not at all 2. Feeling down, depressed, or hopeless: not at all Total score: 0 PHQ-9 3. Trouble falling or staying asleep, or sleeping too much: Not at all 4. Feeling tired or having little energy: Not at all 5. Poor appetite or overeating: Not at all 6. Feeling bad about yourself - or that you are a failure or have let yourself or your family down: Not at all 7. Trouble concentrating on things, such as reading the newspaper or watching television: Not at all 8. Moving or speaking so slowly that other people could have noticed? - Or the opposite - being so fidgety or restless that you have been moving around a lot more than usual: not at all 9. Thoughts that you would be better off or of hurting yourself in some way: Not at all If you checked off any problems, how difficult have these problems made it for you to do your work, take care of things at home, or get along with other people?: not difficult at all Source: Developed by Drs. Jorgito Jones, Nette Sommer, Frankie Blankenship and colleagues, with an educational dat from [employer]. Depression screen completed yes Social History Living Situation History Marital Status: Lives With: Family Housing: House Tobacco History Smoking Status: Never smoker Second Hand Smoke Exposure: No Alcohol History Alcohol Intake: Never Domestic Abuse History Do You Feel Safe at Home: Yes History of Present Illness HPI Narrative 30-year-old 4 para 3 for OBI. Last period March 30, 2025. This gives EDC January 04, 2026. Patient is 8 weeks by LMP. She reports regular menses the last 4 days and she has sure dates. She has slight nausea and vomiting. But complains more of pelvic cramps. She reports that she has had 3 positive Prag test at home but one of them was light. No bleeding noted. Patient denies social habits. She has a history of an appendix removal 2012 and her gallbladder was removed in 2015. She had no complications. No history of chronic illness. 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 Last period March 30, 2025. She states her menses are every month and they are regular. Denies leaking. Increased pelvic cramping. And slight nausea and vomiting. Patient has concerns whether her test is positive. Negative test today Discussed test results. hCG x 2. Schedule urgent sono for viability of . And comfort measures for nausea and vomiting. Continued prenatals. If beta quant's are elevated to get then we will do OB panel labs. Discussed ER precautions and advised patient to return in a week for results. Ultrasound was scheduled here at [facility] Menstrual History Menstrual reliability: definite Flow: normal Menstrual regularity: regular Monthly: Yes Age at menarche: 8 On control pills at conception: No OB History : 5 Para: 3 Hx Total # of Abortions (Spontaneous & Elective): 2 # of Living Children: 3 Delivery History 1st : Child's name: RONEN RÍOS date: 01/30/09 sex: male Gestational age at delivery (weeks): 41 Delivery type: vaginal History of depression before or after : No 2nd : Child's name: DAY MOCK date: 04/08/13 sex: male Gestational age at delivery (weeks): 41 Delivery type: vaginal History of depression before or after : No 3rd : Child's name: NARINDER MOCK date: 04/17/22 sex: male Gestational age at delivery (weeks): 41 Delivery type: vaginal History of depression before or after : No Infection History & Risk Evaluation History of STDs: none Genetic Screening & History Genetic Screening/Teratology Counseling - Includes patient, baby's father, or anyone in either family with: 1. Patient's age 35 years or older as of estimated date of delivery: No 2. Thalassemia (Cambodian, Syrian, Mediterranean, or Background); MCV less than 80: No 3. Neural Tube Defect (Meningomyelocele, Spina Bifida, or Anencephaly): No 4. Congenital Heart Defect: No 5. Down Syndrome: No 6. Kevin-Sachs (Ashkenazi Jehovah'S Witness, Cajun, Sammarinese Mclennan): No 7. Kael Disease (Ashkenazi Jehovah'S Witness): No 8. Familial Dysautonomia (Ashkenazi Jehovah'S Witness): No 9. Sickle Cell Disease or Trait (): No 10. Hemophilia or other blood disorders: No 11. Muscular Dystrophy: No 12. Cystic Fibrosis: No 13. Grimes's Chorea: No 14. Mental Retardation/Autism: No 15. Other inherited genetic or chromosomal disorder: No 16. Maternal Metabolic Disorder (EG,TYPE 1 Diabetes, PKU): No 17. Patient or baby's father had a child with defects not listed above: No 18. Recurrent loss or a stillbirth: No 19. Medications (including supplements, vitamins, herbs or otc drugs)/illicit/recreational drugs/alcohol since last menstrual period: No 20. Any other: No Infection History Other (see comments) Source: [employer] Review of Systems Review of Systems Systems Reviewed: All systems reviewed, normal except as documented Exam General Limitations: no limitations General Appearance: alert, in no apparent distress, comfortable, cooperative, healthy appearing, well developed and well groomed Chest Chest inspection: Present normal inspection and symmetric chest wall rise Resp Respiratory exam: Present normal lung sounds bilaterally Card Cardiovascular exam: Present regular rate, normal rhythm and normal heart sounds Abdominal Abdominal exam: Present soft and normal bowel sounds Psych Psychiatric exam: Present normal affect and normal mood Office Procedures OBC Clinic LOC & Office Proc's Nursing/Assessment Patient Status: Established Patient OB Clinic Nursing Assessment: Medication Reconciliation, Update PMH in EMR and Vital Signs OB Clinic Coordination of Care: Complex Care and Chronic Disease 1-5, Education Complex Pt/Fam, Consent,records obtained, informed consent, Lab and Imaging orders, Results/Orders obtained and Staff clarify orders Special Needs: Heart tones Established Patient Charge Established Patient Point Assignment: 140 Established Patient Point Charge: EP Level 4 (120-155) Assessment & Plan Diagnosis / Problem List (1) Encounter for supervision of high risk in first trimester, antepartum: Status: Acute (2) , threatened, antepartum: Status: Acute Plan SAB and ER precautions given. hCG x 2. I scheduled OB sono here at [facility] urgent. Continue prenatals. Will do labs after evaluation of a viable . And then patient will return in a week for results Additional Plan Follow Up: 1 Week (f/u/results)
== END 2025-05-25 11:08 | disposition home or self-care (01) ==
LOC: HODSOBC 10:33
PROVIDERS: Supervising Provider Advanced Practice Midwife; Visit Provider Advanced Practice Midwife
DX: O09.891 Supervision of other high risk pregnancies, first trimester (principal); O20.0 Threatened abortion; O21.9 Vomiting of pregnancy, unspecified; Z3A.08 8 weeks gestation of pregnancy
CPT/HCPCS: 99214; G0463

== ENCOUNTER 2025-06-02 09:20 | Outpatient (AMB) | payer MEDICAID, SELFPAY ==
--- NOTE | 2025-06-02 09:28 | GYNCLNT_ITS ---
Vital Signs 06/02/25 09:29 Height 1.6 m Height Method Stated Weight 81.25 kg Weight Measurement Method Standing Scale BMI 31.7 BP 127/80 Blood Pressure Source Automatic Cuff Blood Pressure Location Left Upper Arm Position Sitting Respiration 18 Pulse 90 Pulse Source Monitor Temp 98.1 F Temp Source Oral Pulse Oximetry (%) 98 Oxygen Delivery Method Room Air Allergies/Home Meds Allergies & Medications Allergies No Known Allergies Allergy (Verified 06/02/25 09:29) Medication Reconciliation No Known Home Medications 06/02/25 [History Confirmed 06/02/25] Intake Visit Data Collection New Patient or Established: Established Patient (seen at [facility] within 3 years) Reason for Visit:: DISCUSS HCG RESULTS Seen by Clinical Staff ONLY (RN/MA): No 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 Required: No Do You Feel Safe at Home: Yes Authorities Contacted: N/A PCP or OBGYN visit in last 3 months: Yes Hx Now: No Are you currently on any form of Control: No Last menstrual period: 04/04/25 Pain Present Currently: No Pain Scale Used: Hernandez-Cervantes/Numerical Pain scale:: 0 Smoking Status Smoking Status: Never smoker Immunizations Flu Vaccine in the Last 12 Months: No Flu Vaccine Exclusion Criteria: Refused by Patient 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 Menstrual regularity: regular Flow: normal Monthly: Yes How many days does period last: 5 Age at menarche: 8 Currently 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 1. Little interest or pleasure in doing things: not at all 2. Feeling down, depressed, or hopeless: not at all Total score: 0 PHQ-9 3. Trouble falling or staying asleep, or sleeping too much: Not at all 4. Feeling tired or having little energy: Not at all 5. Poor appetite or overeating: Not at all 6. Feeling bad about yourself - or that you are a failure or have let yourself or your family down: Not at all 7. Trouble concentrating on things, such as reading the newspaper or watching television: Not at all 8. Moving or speaking so slowly that other people could have noticed? - Or the opposite - being so fidgety or restless that you have been moving around a lot more than usual: not at all 9. Thoughts that you would be better off or of hurting yourself in some way: Not at all Total score: 0 Source: Developed by Drs. Jorgito Jones, Nette Sommer, Frankie Blankenship and colleagues, with an educational dat from [employer]. Depression screen completed yes Social History Living Situation History Lives With: Family Housing: House Tobacco History Smoking Status: Never smoker Second Hand Smoke Exposure: No Alcohol History Alcohol Intake: Never Domestic Abuse History Do You Feel Safe at Home: Yes History of Present Illness HPI Narrative 30-year-old 5 para 3 for hCG results. Follow-up problem. Last period April 09. Patient reports that she had had a miscarriage in August of this year and had bad outcome. She had an infection and it was difficult to evacuate the . Patient would like a in the future. She is not bleeding at this time. Denies social habits. Denies surgery. Denies chronic illness. Review of Systems Review of Systems Systems Reviewed: All systems reviewed, normal except as documented Exam Narrative Physical exam: Normal heart rate and rhythm. Lungs clear no wheezes. Abdomen soft. Nontender. Negative pain in legs full range of motion. No bleeding. General Limitations: no limitations General Appearance: alert, in no apparent distress, comfortable, cooperative, healthy appearing, well developed and well groomed ENT ENT exam: Present normal exam, normal oropharynx and mucous membranes moist Resp Respiratory exam: Present normal lung sounds bilaterally Card Cardiovascular exam: Present regular rate, normal rhythm and normal heart sounds Abdominal Abdominal exam: Present soft and normal bowel sounds Psych Psychiatric exam: Present normal affect and normal mood Results Objective Laboratory: HCG<1 Office Procedures [facility] LOC & Office Proc's Nursing/Assessment Patient Status: Established Patient OB Clinic Nursing Assessment: Medication Reconciliation, Update PMH in EMR and Vital Signs OB Clinic Coordination of Care: Complex Care and Chronic Disease 1-5, Consent,records obtained, informed consent, Education Simp Pt/Fam, Lab and Imaging orders, Results/Orders obtained and Staff clarify orders Established Patient Charge Established Patient Point Assignment: 105 Established Patient Point Charge: EP Level 3 (80-115) Assessment & Plan Diagnosis / Problem List (1) , threatened, antepartum: Status: Acute Plan Preconceptual counseling done. Patient will continue her vitamins. Condoms for few months. And then patient plans actively try for . Discussed diet and regular exercise. Return as needed Additional Plan Follow Up: 6 Months (f/u)
[2025-06-02 09:29] VITALS: BP 127/80; PULSE 90; RESP 18; TEMP 36.7; O2SAT 98; BMI 31.7
== END 2025-06-02 10:03 | disposition home or self-care (01) ==
LOC: HODSOBC 09:20
PROVIDERS: Supervising Provider Advanced Practice Midwife; Visit Provider Advanced Practice Midwife
DX: O20.0 Threatened abortion (principal); Z3A.00 Weeks of gestation of pregnancy not specified
CPT/HCPCS: 99213; G0463